=== PATIENT | female | born 1940 | race Caucasian/White ===

== ENCOUNTER 2023-12-12 13:01 | Inpatient (IN) ==
[2023-12-12 14:34] LABS: Partial Thromboplastin Ratio 0.9; Partial Thromboplastin Time 24 Seconds (21-31); Prothrombin Time 11.1 Seconds (9.0-12.0)
[2023-12-12 14:43] LABS: Alanine Aminotransferase 8 U/L (7-52); Albumin Globulin Ratio 1.4 (0.9-2); Albumin Level 4.1 gm/dl (3.4-5.0); Alkaline Phosphatase 126 U/L (34-104); Anion Gap 9 (3-11); Aspartate Aminotransferase 16 U/L (13-39); BUN Creatinine Ratio 21.3 (10-20); Bilirubin,Total 0.2 mg/dl (0.2-1.0); Blood Urea Nitrogen 20 mg/dl (6-23); Calcium 8.8 mg/dl (8.6-10.3); Carbon Dioxide 26 mmol/L (21-32); Chloride 102 mmol/L (98-107); Creatinine Clr Calc Pharmacy 46.6 ml/min; Est GFR (African American) 64.6 ml/min; Est GFR (Non-African American) 55.7 ml/min; Glucose 97 mg/dl (70-99(Fasting)); Potassium 3.9 mmol/L (3.5-5.1); Sodium 137 mmol/L (136-145); Total Protein 7.1 gm/dl (6.0-8.3)
[2023-12-12 14:48] LABS: Hematocrit (blood only) 19.8 % (37.0-47.0); Hemoglobin 5.6 g/dl (12.0-16.0); Mean Corpuscular Hemoglobin 18.2 pg (25.0-34.0); Mean Corpuscular Hgb Conc 28.3 g/dL (32.0-36.0); Mean Corpuscular Volume 64.3 fL (80.0-100.0); Nucleated RBC # (auto) 0.04 K/uL (0.00-0.12); Nucleated RBC % (auto) 0.7 %; Platelet Count 413 K/uL (130-400); RDW Coefficient of Variation 18.3 % (11.5-14.5); RDW Standard Deviation 41.1 fL (36.4-46.3); Red Blood Count 3.08 M/uL (4.20-5.40); White Blood Count 6.13 K/ul (4.8-10.8)
[2023-12-12 14:49] LABS: Troponin I High Sensitivity 14.2 pg/ml (0-14)
[2023-12-12] MEDS ORDERED: SODIUM CHLORIDE 0.9% 250 ML IV PRN (14:52)
--- NOTE | 2023-12-12 14:54 | Emergency Department Note ---
Impression & Plan Acute hypoxic respiratory failure, Symptomatic anemia, Pulmonary embolism, Weakness ED Provider Note NAME: JAZMINE CABAN AGE: 83 SEX: F : 1940 ARRIVES VIA: Walk-In INFORMANT: Patient ED PROVIDER(S): Pj Marino DO CHIEF COMPLAINT: shortness of breath HPI: Patient is an 83-year-old female who presents to the ER for weakness and shortness of breath with exertion. This has been going on for the past 3 weeks and gradually getting worse. She denies any headache or change in vision. No chest pain. Denies any dysuria, urgency or frequency. No other exacerbating or remitting factors. She has never had this before. No swelling of the legs. She denies any blood in the stool. ADDITIONAL HISTORY OBTAINED: Per HPI Chronic Medical/Social Conditions Affecting Care: Per HPI PAST MEDICAL HISTORY:See Below PAST SURGICAL HISTORY:See Below FAMILY HISTORY:See Below SOCIAL HISTORY:See Below HOME MEDICATIONS:See Below ALLERGIES:See Below VITALS:See Below PHYSICAL EXAMINATION: GENERAL: Sitting up in chair, alert, well appearing, well nourished, no distress, non-toxic EYE EXAM: normal conjunctiva. OROPHARYNX:mucous membranes are moist LUNGS: Clear to auscultation. Normal chest wall mechanics HEART: no murmurs, S1 normal and S2 normal ABDOMEN: abdomen soft, non-tender, normo-active bowel sounds, no masses, no rebound or guarding. RECTAL: hem neg brown stool performed with female RN at bedside Tammy UPPER EXTREMITIES: upper extremities are grossly normal. LOWER EXTREMITIES: No pitting edema. NEURO EXAM: Normal sensorium, cranial nerves II-XII grossly intact, normal speech, no gross weakness of arms, no gross weakness of legs. MEDICAL DECISION MAKING: Patient is an 83-year-old female who presents to the ER for dyspnea on exertion. IV was established blood work was obtained. Due to the protracted wait she was seen to be [employer]. She was found to be hypoxic and I immediately contacted the charge nurse and requested that she be placed in a room. Labs showed no significant leukocytosis. Significant anemia at 5.6 down from her previous of 2022 upon review of external records in [facility] which showed normal hemoglobins. Platelets were normal. No neutropenia. INR unremarkable. BMP along with LFTs and bilirubin was unremarkable. Troponin just faintly elevated at 14. Patient was typed and crossed and ordered 2 units of PRBCs. I obtained consent at bedside. Contacted the hospitalist as were trying to get the patient into a room due to current volumes. CTs of the chest and abdomen were ordered by the hospitalist which showed PEs. Please see their notes as this resulted after admission. Patient did remain on 2 L nasal cannula throughout her stay in the ER. She was not tachypneic, tachycardic nor hypotensive while in the ER. Consults/Care Managements Discussions: Per [facility] Triage Nursing notes reviewed. Limited review of prior medical records performed Vital Signs: reviewed and remarkable for hypoxic Differential diagnosis: Infection, dehydration, metabolic abnormality, hypo/hyperglycemia, electrolyte disturbance, anemia, hypoxia, cardiac sources, intracerebral event, toxicologic, neurologic, as well as other pathologies. ER treatment provided: See below Diagnostics interpreted by me include EKG and cardiac monitoring as listed below: -Cardiac Monitoring: An order was placed for continuous cardiac monitoring. The monitor shows a rate of 90 with sinus rhythm. -ECG: Sinus rhythm rate of 76 Left axis No PVCs QTc 450 -Laboratory studies:Interpreted by me as stated above in MDM and shown below. Imaging studies: Xrays: As interpreted by me: 2 views of the chest show no focal infiltrate CTs show: Please see hospitalist notes Procedures:none Critical Care: I have personally spent 32 minutes of critical care time in the direct management of this patient. This includes bedside care, interpretation of diagnostic studies, and testing, discussion with consultants, patient, and family members, and other required patient management activities. This 32 minutes is in excess of all separately billable procedures. Past Med/Surg History Problem List (Updated 12/12/23 @ 18:58 by Pj Marino DO) Weakness (Acute) Pulmonary embolism (Acute) Symptomatic anemia (Acute) Acute hypoxic respiratory failure (Acute) Medical History (Updated 12/12/23 @ 18:58 by Pj Marino DO) Arthritis Family History Other Family history non-contributory Social History Smoking Status: Never smoker Feels Safe at Home: Yes Allergies Allergies Allergy/AdvReac Type Severity Reaction Status Date / Time codeine Allergy Unknown CAN'T Verified 12/12/23 15:53 REMEMBER erythromycin base Allergy Unknown CAN'T Verified 12/12/23 15:53 REMEMBER Home Meds Home Medications Medication Instructions Recorded Confirmed glucosamine-chondroitin 250 mg-200 1 tab PO DAILY 10/10/18 12/12/23 mg tablet (Osteo Bi-Flex) hydrochlorothiazide 50 mg tablet 50 mg PO DAILY 10/10/18 12/12/23 omega 6-vls-sph-fish oil 1,000 mg 1 cap PO DAILY 10/10/18 12/12/23 (120 mg-180 mg) capsule (Fish Oil) potassium chloride 10 mEq 10 meq PO DAILY 10/10/18 12/12/23 tablet,extended release(part/cryst) primidone 250 mg tablet 250 mg PO BID 10/10/18 12/12/23 red yeast rice 600 mg capsule 600 mg PO DAILY 10/10/18 12/12/23 apple cider vinegar 500 mg tablet 500 mg PO DAILY 12/12/23 12/12/23 loratadine 10 mg tablet (Claritin) 10 mg PO DAILY 12/12/23 12/12/23 Results & Data (ED) Vital Signs Vital Signs - 24 hr 12/12/23 13:10 12/12/23 13:14 12/12/23 15:32 Temperature 36.5 C Temperature Source Temporal Artery Scan Pulse Rate 93 H 78 Pulse Rhythm Regular Pulse Strength Normal Respiratory Rate 20 Respiratory Effort / Characteristics Non-Labored Spontaneous Respiratory Depth Normal Blood Pressure 143/57 H Blood Pressure [Left Arm] Blood Pressure Mean 85 Blood Pressure Mean [Left Arm] Blood Pressure Position Sitting Pulse Oximetry 87 L 87 L 100 Oxygen Delivery Method Room Air Room Air Nasal Cannula Nasal Cannula Oxygen Flow Rate 0 2 Sepsis Recent Fever Within 48 Hours No Sepsis New/Unexplained Change in Mental Status N/A Sepsis Action Taken by Nursing No Action Required Oxygen Flow Rate - Titration 2 Pulse Oximetry Post Tiitration 94 12/12/23 15:32 12/12/23 15:49 Temperature Temperature Source Pulse Rate 83 Pulse Rhythm Pulse Strength Respiratory Rate Respiratory Effort / Characteristics Respiratory Depth Blood Pressure Blood Pressure [Left Arm] 163/67 H Blood Pressure Mean Blood Pressure Mean [Left Arm] 99 Blood Pressure Position Pulse Oximetry Oxygen Delivery Method Oxygen Flow Rate Sepsis Recent Fever Within 48 Hours Sepsis New/Unexplained Change in Mental Status Sepsis Action Taken by Nursing Oxygen Flow Rate - Titration Pulse Oximetry Post Tiitration Laboratory Data 12/12/23 13:55 12/12/23 13:55 Lab Results 12/12/23 12/12/23 Range/Units 13:55 15:31 WBC 6.13 (4.8-10.8) K/ul RBC 3.08 L (4.20-5.40) M/uL Hgb 5.6 L* (12.0-16.0) g/dl Hct 19.8 L* (37.0-47.0) % MCV 64.3 L (80.0-100.0) fL MCH 18.2 L (25.0-34.0) pg MCHC 28.3 L (32.0-36.0) g/dL RDW Std Deviation 41.1 (36.4-46.3) fL RDW Coeff of Kendal 18.3 H (11.5-14.5) % Plt Count 413 H (130-400) K/uL MPV 10.0 (9.4-12.4) fL Immature Gran % (Auto) 0.3 % Neut % (Auto) 53.7 % Lymph % (Auto) 32.0 % [place] % (Auto) 10.3 % Eos % (Auto) 3.4 % Baso % (Auto) 0.3 % Neut # (Auto) 3.29 (1.40-6.50) K/uL Lymph # (Auto) 1.96 (1.20-3.40) K/uL [place] # (Auto) 0.63 H (0.11-0.59) K/uL Eos # (Auto) 0.21 (0.00-0.50) K/uL Baso # (Auto) 0.02 (0.00-0.20) K/uL Immature Gran # (Auto) 0.02 (0.01-0.20) K/uL Absolute Nucleated RBC 0.04 (0.00-0.12) K/uL Nucleated RBC % (auto) 0.7 % Polychromasia 1+ Hypochromasia Present Microcytosis Present PT 11.1 (9.0-12.0) Seconds INR 1.0 (0.9-1.1) APTT 24 (21-31) Seconds PTT Ratio 0.9 Sodium 137 (136-145) mmol/L Potassium 3.9 (3.5-5.1) mmol/L Chloride 102 (98-107) mmol/L Carbon Dioxide 26 (21-32) mmol/L Anion Gap 9 (3-11) BUN 20 (6-23) mg/dl Creatinine 0.94 (0.6-1.2) mg/dl Est Cr Clr Drug Dosing 46.6 ml/min Est GFR ( Amer) 64.6 ml/min Est GFR (Non-Af Amer) 55.7 ml/min BUN/Creatinine Ratio 21.3 H (10-20) Glucose 97 (70-99(Fasting)) mg/dl Calcium 8.8 (8.6-10.3) mg/dl Total Bilirubin 0.2 (0.2-1.0) mg/dl AST 16 (13-39) U/L ALT 8 (7-52) U/L Alkaline Phosphatase 126 H (34-104) U/L Troponin I High Sens 14.2 H (0-14) pg/ml B-Natriuretic Peptide 200 H (0-100) pg/ml Total Protein 7.1 (6.0-8.3) gm/dl Albumin 4.1 (3.4-5.0) gm/dl Globulin 3.0 (2.5-4.0) gm/dl Albumin/Globulin Ratio 1.4 (0.9-2) Blood Type O Positive Antibody Screen NEGATIVE Crossmatch See Detail Administered Medications Discontinued Medications Ioversol (Optiray 320 125ml) 121 ml IV ONCE ONE Stop: 12/12/23 16:29 Last Admin: 12/12/23 16:28 Dose: 121 ml Documented By: [facility]W Imaging Data Radiologist's Impression: Chest X-Ray 12/12/23 13:15 XR chest 2V PA/lateral HISTORY: Chest pain, nonspecific COMPARISON: None. FINDINGS: No pneumothorax. No pleural effusions. The cortex silhouette is mildly enlarged. Retrocardiac density favors a moderate hiatus hernia. There are calcifications within the aortic knob. No focal lung consolidations to suggest a pneumonia. No evidence for pulmonary edema. No acute fractures. IMPRESSION: 1. Mild cardiomegaly. 2. Retrocardiac density favors a moderate hiatus hernia. 3. No focal lung consolidations to suggest a pneumonia. ACT 112: Negative or not required by law. Electronically signed by: Yuri Virgen M.D. 12/12/2023 3:14 PM Discharge Plan Visit Data Chief Complaint: Shortness of Breath/Dyspnea Stated Complaint: SOB ED Provider: Pj Marino Discharge Problem: Acute hypoxic respiratory failure, Symptomatic anemia, Pulmonary embolism, Weakness Patient Disposition: Admitted As Inpatient Discharge Instructions Interventions: ED Discharge Assessment Last Done: 12/12/23 17:26 Discharge Problem: Pulmonary embolism Qualifiers: Pulmonary embolism type: unspecified Chronicity: unspecified Acute cor pulmonale presence: unspecified Qualified Code(s): I26.99 - Other pulmonary embolism without acute cor pulmonale
[2023-12-12 14:56] LABS: Basophils # (auto) 0.02 K/uL (0.00-0.20); Basophils % (auto) 0.3 %; Eosinophils # (auto) 0.21 K/uL (0.00-0.50); Eosinophils % (auto) 3.4 %; Hypochromasia Present; Immature Granulocytes # (auto) 0.02 K/uL (0.01-0.20); Immature Granulocytes % (auto) 0.3 %; Lymphocytes # (auto) 1.96 K/uL (1.20-3.40); Microcytosis Present; Monocytes # (auto) 0.63 K/uL (0.11-0.59); Monocytes % (auto) 10.3 %; Neutrophils # (auto) 3.29 K/uL (1.40-6.50); Neutrophils % (auto) 53.7 %; Polychromasia 1+
--- NOTE | 2023-12-12 15:15 | XRay Report ---
XR chest 2V PA/lateral HISTORY: Chest pain, nonspecific COMPARISON: None. FINDINGS: No pneumothorax. No pleural effusions. The cortex silhouette is mildly enlarged. Retrocardi ac density favors a moderate hiatus hernia. There are calcifications within the aortic knob. No focal lung consolidations to suggest a pneumonia. No evidence for pulmonary edema. No acute fractures. IMPRESSION: 1. Mild cardiomegaly. 2. Retrocardiac density favors a moderate hiatus hernia. 3. No focal lung consolidations to suggest a pneumonia. ACT 112: Negative or not required by law. Electronically signed by: Yuri Virgen M.D. 12/12/2023 3:14 PM
--- NOTE | 2023-12-12 15:52 | History & Physical Report ---
Date of Service December 12, 2023 Assessment & Plan (1) Weakness: (2) Pulmonary embolism: (3) Symptomatic anemia: (4) Acute hypoxic respiratory failure: Plan Pt is an 83yoF with PMHx significant for HTN, seizure disorder, HLD who presents with progressive SOB over the last few weeks. Acute hypoxic respiratory Failure Pt with oxygen saturation in the 80s at times Biofire/respiratory panel pending Echo pending to rule out CHF Likely in setting of severe anemia and PEs (see below) Oxygen supplementation as needed Continue to monitor Microcytic Anemia Pt presenting with progressive SOB Hgb of 5.6 on admission, last CBC per [facility] in October 2020 with hgb of 13.9 MCV in the 60s Pt denies any signs of bleeding FOBT per ED provider negative Anemia panel with iron, b12 and folate pending CT abd/pelvis with no obvious cause Being transfused 2U of pRBCs in the ED q6h H/H transfuse blood as needed with goal hgb >7 Hematology consult, appreciate recs Likely chronic given pt's presentation, uncertain cause Continue to monitor Multiple pulmonary emboli Pt presenting with progressive SOB CTA chest noting extensive bilateral pulmonary emboli Stat consult to Hematology Dr Avery given pt's significant anemia requiring transfusion and need for heparin for PE. Dr Avery advised IV heparin if no signs of bleeding and to consider IVC filter if there are signs of bleeding. Pt currently withOUT signs of bleeding, IV heparin started Echo pending to r/o heart strain Bilateral venous doppler pending to r/o DVT Monitor H/H q6h while on heparin Uncertain cause of PE in setting of chronic anemia, ?cancer, biofire pending to r/o covid. Appreciate further Hematology recs. Continue with telemetry monitoring Elevated Trop Cardiomegaly Trop elevated at 14.2 Likely demand ischemia in setting of above Trend to peak BNP of 200 with cardiomegaly noted on chest XR, echo pending as above, r/o CHF Continue telemetry monitoring Hiatal hernia moderate to large, noted on imaging started on ppi Seizure disorder Continue home primidone HTN Holding home HCTZ in setting of significant anemia, resume as able HLD Holding home red yeast extract Continue other home meds as ordered Diet: HH DVT prophylaxis: IV heparin Dispo: admit to PCU/tele History of Present Illness Chief Complaint: Shortness of breath Primary Care Provider: Jarrod Moseley DO Pt is an 83yoF with PMHx significant for HTN, seizure disorder, HLD who presents with progressive SOB over the last few weeks. She states that she has been having SOB with progression over the last few weeks. Mostly with ambulation. States she has never smoked and does not use oxygen at home. Denies epistaxis, hemoptysis, hematemesis or hematochezia/melena. She does note that many weeks ago she might have had black stools but believes it was related to what she ate. States she gets very tired and has to rest or sit when she is walking. Chart review shows she saw her pcp in October and had had a recent fall at that time. Denies chest pain but states she feels like she has reflux. Denies palpitations. Denies orthopnea. States her legs are always swollen. Pt was consented for blood in the ED and transfused 2U. Two sons were present at bedside including son Rayray Banuelos who is an RN here in the hospital. Allergies Allergy/AdvReac Type Severity Reaction Status Date / Time codeine Allergy Unknown CAN'T Verified 12/12/23 15:53 REMEMBER erythromycin base Allergy Unknown CAN'T Verified 12/12/23 15:53 REMEMBER Home Medications Medication Instructions Recorded Confirmed Type glucosamine-chondroitin 250 mg-200 1 tab PO DAILY 10/10/18 12/12/23 History mg tablet (Osteo Bi-Flex) hydrochlorothiazide 50 mg tablet 50 mg PO DAILY 10/10/18 12/12/23 History omega 4-ahu-lps-fish oil 1,000 mg 1 cap PO DAILY 10/10/18 12/12/23 History (120 mg-180 mg) capsule (Fish Oil) potassium chloride 10 mEq 10 meq PO DAILY 10/10/18 12/12/23 History tablet,extended release(part/cryst) primidone 250 mg tablet 250 mg PO BID 10/10/18 12/12/23 History red yeast rice 600 mg capsule 600 mg PO DAILY 10/10/18 12/12/23 History apple cider vinegar 500 mg tablet 500 mg PO DAILY 12/12/23 12/12/23 History loratadine 10 mg tablet (Claritin) 10 mg PO DAILY 12/12/23 12/12/23 History Past Med/Surg History Problem List (Updated 12/12/23 @ 18:58 by Pj Marino DO) Weakness (Acute) Pulmonary embolism (Acute) Symptomatic anemia (Acute) Acute hypoxic respiratory failure (Acute) Medical History (Updated 12/12/23 @ 18:58 by Pj Marino DO) Arthritis Family History Other Family history non-contributory Social History Smoking Status: Never smoker Feels Safe at Home: Yes Review of Systems Review of Systems: All systems reviewed & are unremarkable except as noted in Subjective Physical Exam Physical Exam: General: Alert, oriented. No acute distress Skin: No noted rashes or bruises Psych: Appropriate mood and affect Neuro: No gross deficits HEENT: NC/AT, NC in nares Chest: Nontender to palpation. CV: RRR Resp: Breath sounds decreased bilaterally, no increased effort of breathing. Abdomen: Soft, nontender, nondistended Extremities: edema in lower extremities bilaterally. Results & Data Results & Data Vital Signs (Past 12 Hours) Vital Signs Temp Pulse Resp BP BP Pulse Ox O2 Del Method 12/12/23 15:49 83 12/12/23 15:32 163/67 H 12/12/23 15:32 78 100 Nasal Cannula 12/12/23 13:14 87 L Room Air, Nasal Cannula 12/12/23 13:10 36.5 C 93 H 20 143/57 H 87 L Room Air O2 Flow Rate 12/12/23 15:49 12/12/23 15:32 12/12/23 15:32 2 12/12/23 13:14 0 12/12/23 13:10 Diagnostic Findings Chest X-Ray 12/12/23 13:15 XR chest 2V PA/lateral HISTORY: Chest pain, nonspecific COMPARISON: None. FINDINGS: No pneumothorax. No pleural effusions. The cortex silhouette is mildly enlarged. Retrocardiac density favors a moderate hiatus hernia. There are calcifications within the aortic knob. No focal lung consolidations to suggest a pneumonia. No evidence for pulmonary edema. No acute fractures. IMPRESSION: 1. Mild cardiomegaly. 2. Retrocardiac density favors a moderate hiatus hernia. 3. No focal lung consolidations to suggest a pneumonia. ACT 112: Negative or not required by law. Electronically signed by: Yuri iVrgen M.D. 12/12/2023 3:14 PM Abdomen/Pelvis CT 12/12/23 15:[address] WITH IV CONTRAST CT DOSE: HISTORY: anemia, r/o bleed TECHNIQUE: Multiaxial CT images of the abdomen and pelvis were performed fo llowing the use of intravenous contrast. A dose lowering technique was utilized adhering to the principles of ALARA. COMPARISON STUDY: None. FINDINGS: The lung bases will be reported on the same day chest CTA. No pneumoperitoneum. No pneumatosis. No acute fractures. Moderate hiatus hernia is noted. Right lower lobe segmental pulmonary emboli are again noted. A few hepatic and bilateral renal cysts are noted. The spleen, adrenal glands, pancreas, gallbladder are unremarkable. The main portal vein is patent. No hydronephrosis. No retroperitoneal hematoma or lymphadenopathy. Calcified plaque within the normal caliber abdominal aorta. No pelvic lymphadenopathy or pelvic free fluid. Normal bladder. Prior hysterectomy. Mild pelvic floor collapse. No bowel wall thickening or obstruction. Prior appendectomy. Small bilateral ovarian cysts are noted. IMPRESSION: 1. The right lower lobe pulmonary emboli are better appreciated on the same day chest CTA. 2. No evidence for a retroperitoneal hematoma. 3. No bowel wall thickening or obstruction. 4. Moderate hiatus hernia. 5. Additional findings as described above. ACT 112: Negative or not required by law. Electronically signed by: Yuri Virgen M.D. 12/12/2023 5:17 PM Chest CTA 12/12/23 15:59 CT ANGIOGRAM OF THE CHEST CLINICAL HISTORY: Atypical chest pain. Dyspnea. Fatigue COMPARISON STUDY: Chest x-ray dated 12/12/2023. TECHNIQUE: Following the IV administration of 121 cc of Optiray 320, CT angiogram of the chest was performed from the upper abdomen to the thoracic inlet utilizing the pulmonary embolus protocol. Images are reviewed in the axial, sagittal, and coronal planes. 3-D MIPS images are created and assessed. IV contrast was administered without complication. A dose lowering technique was utilized adhering to the principles of ALARA. CT DOSE: 2269.61 mGy.cm FINDINGS: Thyroid: Imaged portions of the thyroid gland are normal in size and attenuation. Thoracic aorta: There is atherosclerotic calcification of the thoracic aorta, which is normal in caliber and demonstrates standard 3-vessel arch anatomy. No dissection is seen. Pulmonary vasculature: The pulmonary trunk is normal in caliber. There is pulmonary embolus within the right upper, right middle, and left lower lobe pulmonary arteries which extend into segmental and subsegmental branches. There are also segmental and subsegmental pulmonary embolus in branches of the right lower and left upper lobe pulmonary arteries. Heart: The heart is enlarged and without pericardial effusion. The coronary arteries are densely calcified. Lungs and pleural spaces: Evaluation of the lung parenchyma is degraded by motion artifact. There is no airspace consolidation or pleural effusion. Subpleural reticulation is seen throughout both lungs. There is bibasilar scarring/atelectasis. The trachea and central airways are clear. Mediastinum: There is no mediastinal lymphadenopathy. Faith: Clear. Axillae: There is no axillary lymphadenopathy. Upper abdomen: There is a moderate to large hiatal hernia. Scattered hepatic cysts measure up to 2.4 cm. An exophytic left renal cyst measures up to 1.6 cm. Skeletal structures: The skeletal structures are osteopenic. Degenerative change and hyperkyphosis is seen in the spine. No lytic or blastic bony lesions are seen. Arthritic change is seen in the shoulders. IMPRESSION: 1. Fairly extensive bilateral pulmonary emboli as above. 2. There is no airspace consolidation or pleural effusion. 3. Moderate to large hiatal hernia. 4. Cardiomegaly. 5. Additional findings as above. ACT 112: Negative or not required by law. Electronically signed by: Johnathan Gresham M.D. 12/12/2023 5:04 PM (2) Pulmonary embolism Acute cor pulmonale presence: unspecified Chronicity: unspecified Pulmonary embolism type: unspecified Qualified Code(s): I26.99 - Other pulmonary embolism without acute cor pulmonale
[2023-12-12] MEDS: OPTIRAY 320 125ml IV ONE (16:28)
--- NOTE | 2023-12-12 17:06 | CT Scan Report ---
CT ANGIOGRAM OF THE CHEST CLINICAL HISTORY: Atypical chest pain. Dyspnea. Fatigue COMPARISON STUDY: Chest x-ray dated 12/12/2023. TECHNIQUE: Following the IV administration of 121 cc of Optiray 320, CT angiogram of the chest was pe rformed from the upper abdomen to the thoracic inlet utilizing the pulmonary embolus protocol. Images are reviewed in the axial, sagittal, and coronal planes. 3-D MIPS images are created and assessed. I V contrast was administered without complication. A dose lowering technique was utilized adhering to the principles of ALARA. CT DOSE: 2269.61 mGy.cm FINDINGS: Thyroid: Imaged portions of the thyroid gland are normal in size and attenuation. Thoracic aorta: There is atherosclerotic calcification of the thoracic aorta, which is normal in nnamdi samina and demonstrates standard 3-vessel arch anatomy. No dissection is seen. Pulmonary vasculature: The pulmonary trunk is normal in caliber. There is pulmonary embolus within th e right upper, right middle, and left lower lobe pulmonary arteries which extend into segmental and s ubsegmental branches. There are also segmental and subsegmental pulmonary embolus in branches of the right lower and left upper lobe pulmonary arteries. Heart: The heart is enlarged and without pericardial effusion. The coronary arteries are densely calc ified. Lungs and pleural spaces: Evaluation of the lung parenchyma is degraded by motion artifact. There is no airspace consolidation or pleural effusion. Subpleural reticulation is seen throughout both lungs. There is bibasilar scarring/atelectasis. The trachea and central airways are clear. Mediastinum: There is no mediastinal lymphadenopathy. Faith: Clear. Axillae: There is no axillary lymphadenopathy. Upper abdomen: There is a moderate to large hiatal hernia. Scattered hepatic cysts measure up to 2.4 cm. An exophytic left renal cyst measures up to 1.6 cm. Skeletal structures: The skeletal structures are osteopenic. Degenerative change and hyperkyphosis is seen in the spine. No lytic or blastic bony lesions are seen. Arthritic change is seen in the should ers. IMPRESSION: 1. Fairly extensive bilateral pulmonary emboli as above. 2. There is no airspace consolidation or pleural effusion. 3. Moderate to large hiatal hernia. 4. Cardiomegaly. 5. Additional findings as above. ACT 112: Negative or not required by law. Electronically signed by: Johnathan Gresham M.D. 12/12/2023 5:04 PM
--- NOTE | 2023-12-12 17:20 | CT Scan Report ---
ABDOMEN AND PELVIS CT WITH IV CONTRAST CT DOSE: HISTORY: anemia, r/o bleed TECHNIQUE: Multiaxial CT images of the abdomen and pelvis were performed following the use of intrave nous contrast. A dose lowering technique was utilized adhering to the principles of ALARA. COMPARISON STUDY: None. FINDINGS: The lung bases will be reported on the same day chest CTA. No pneumoperitoneum. No pneumato sis. No acute fractures. Moderate hiatus hernia is noted. Right lower lobe segmental pulmonary emboli are again noted. A few hepatic and bilateral renal cysts are noted. The spleen, adrenal glands, panc reas, gallbladder are unremarkable. The main portal vein is patent. No hydronephrosis. No retroperito alex hematoma or lymphadenopathy. Calcified plaque within the normal caliber abdominal aorta. No pelv ic lymphadenopathy or pelvic free fluid. Normal bladder. Prior hysterectomy. Mild pelvic floor collap se. No bowel wall thickening or obstruction. Prior appendectomy. Small bilateral ovarian cysts are no nohelia. IMPRESSION: 1. The right lower lobe pulmonary emboli are better appreciated on the same day chest CTA. 2. No evidence for a retroperitoneal hematoma. 3. No bowel wall thickening or obstruction. 4. Moderate hiatus hernia. 5. Additional findings as described above. ACT 112: Negative or not required by law. Electronically signed by: Yuri Virgen M.D. 12/12/2023 5:17 PM
[2023-12-12 19:02] LABS: Iron < 10 mcg/dl (35-150)
[2023-12-12] MEDS: HEPARIN SODIUM/DEXTROSE 25,000 UNITS/500 ML BAG IV SCH (19:15)
[2023-12-12] MEDS: Heparin IV Adult Wt-Based Low-Dose *NO* INITIAL Bolus Protocol IV STA (19:17)
[2023-12-12 19:21] LABS: Ferritin 4.8 ng/ml (8-388)
[2023-12-12 19:25] LABS: Unsaturated Iron Binding Cap 507 mcg/dl (155-355)
[2023-12-12 19:36] LABS: Folate (Folic Acid),Ser orPlas 7.2 ng/ml (>5.38)
[2023-12-12] MEDS ORDERED: ONDANSETRON INJ 2 MG/ML 2 ML VIAL IV PRN (19:59)
--- NOTE | 2023-12-12 21:48 | Oncology Consultation ---
Date of Consultation December 12, 2023 Assessment & Plan (1) Iron deficiency anemia: Transfuse to maintain hemoglobin above 7. The patient will need a full workup for iron deficiency anemia including GI workup which can be performed when she is discharged. She will also need IV iron which can be given in an outpatient basis once the patient is ready for discharge more while she is in the hospital. (2) Pulmonary embolism: FOBT tested okay to anticoagulate patient. Start heparin, transition to oral anticoagulation once ready. The patient will need to be on an anticoagulant for at least 6 months. She will need hypercoagulable workup on discharge. Hematology will follow-up on an outpatient basis. Plan Thank you for this complicated hematological consult. A total of 60 minutes were spent in counseling, coordination of care, review of prior records. History of Present Illness Reason for Consultation: Pulmonary embolism microcytic hypochromic anemia Attending Physician: Denise Osman MD History of Present Illness the patient is a very pleasant 83-year-old woman with a past history of seizure disorder, hyperlipidemia who presented to [facility] with shortness of breath over the last few weeks. in the ER she was noted to be significantly anemic with a hemoglobin of 5.6, She also had a CT scan of the chest abdomen pelvis which revealed pulmonary embolism. Hematology was consulted to assist in management of this complicated patient who has both severe anemia as well as PE. A fecal occult blood test was checked in the ER and was negative. The patient was started on anticoagulation with heparin. There were also small bilateral ovarian cysts, left renal cysts. Doppler of the lower extremities revealed DVT in the left calf. Allergies Allergy/AdvReac Type Severity Reaction Status Date / Time codeine Allergy Unknown CAN'T Verified 12/12/23 15:53 REMEMBER erythromycin base Allergy Unknown CAN'T Verified 12/12/23 15:53 REMEMBER Home Medications Medication Instructions Recorded Confirmed Type glucosamine-chondroitin 250 mg-200 1 tab PO DAILY 10/10/18 12/12/23 History mg tablet (Osteo Bi-Flex) hydrochlorothiazide 50 mg tablet 50 mg PO DAILY 10/10/18 12/12/23 History omega 3-lqi-nvi-fish oil 1,000 mg 1 cap PO DAILY 10/10/18 12/12/23 History (120 mg-180 mg) capsule (Fish Oil) potassium chloride 10 mEq 10 meq PO DAILY 10/10/18 12/12/23 History tablet,extended release(part/cryst) primidone 250 mg tablet 250 mg PO BID 10/10/18 12/12/23 History red yeast rice 600 mg capsule 600 mg PO DAILY 10/10/18 12/12/23 History apple cider vinegar 500 mg tablet 500 mg PO DAILY 12/12/23 12/12/23 History loratadine 10 mg tablet (Claritin) 10 mg PO DAILY 12/12/23 12/12/23 History Patient History Medical History Arthritis Family History Other Family history non-contributory Social History Smoking Status: Never smoker Hx Alcohol Use: No Hx Substance Use: No Preferred Language: Burkinan Communication Ability: Effective Sandblaster Glass Required: No Beliefs That Will Affect Care: None Current Living Situation: Alone Other Information That Helps Us Care for You: No Feels Safe at Home: Yes Safety Concerns: Feels Safe At This Time Assistive Devices: Cane, Glasses and Walker Review of Systems Review of Systems: Weakness, fatigue, dyspnea on exertion Constitutional: as per Subjective / HPI Eyes: as per Subjective / HPI Ear, Nose, Mouth, Throat: as per Subjective / HPI Respiratory: as per Subjective / HPI Cardiovascular: as per Subjective / HPI Gastrointestinal: as per Subjective / HPI Genitourinary: as per Subjective / HPI Musculoskeletal: as per Subjective / HPI Integumentary: as per Subjective / HPI Neurologic: as per Subjective / HPI Psychiatric: as per Subjective / HPI Endocrine: as per Subjective / HPI Hematologic / Lymphatic: as per Subjective / HPI Allergy / Immunological: as per Subjective / HPI Physical Exam Constitutional: WD/WN, vitals as above Eyes: PERRL, conjunctivae normal, anicteric sclerae ENMT: external ear and nose normal, oropharynx normal Neck: trachea midline, no thyromegaly Respiratory: normal respiratory effort, lungs clear to auscultation Cardiovascular: RRR, no murmur, no edema Gastrointestinal (Abdomen): normal bowel sounds, soft, nontender, no hepatosplenomegaly Musculoskeletal: no cyanosis or clubbing, extremities motor strength 5/5 Skin: no rashes, warm and dry Neurologic: patellar DTR's 2+ bilat, sensation intact Psychiatric: A+Ox3, euthymic affect Genitourinary: no vaginal lesions, no adnexal mass Lymphatic: no cervical or axillary lymphadenopathy Results & Data Vital Signs (Past 12 Hours) Vital Signs Temp Pulse Pulse Resp BP BP Pulse Ox 12/12/23 21:05 36.9 C 72 17 170/80 H 100 12/12/23 21:03 73 16 170/80 H 97 12/12/23 20:35 36.7 C 74 16 153/67 H 99 12/12/23 20:20 36.8 C 73 17 153/67 H 97 12/12/23 19:58 36.6 C 74 18 161/69 H 99 12/12/23 19:25 36.8 C 74 22 168/77 H 97 12/12/23 18:44 36.6 C 78 16 156/74 H 98 12/12/23 18:25 36.6 C 72 18 156/74 H 99 12/12/23 17:55 36.6 C 73 17 159/69 H 100 12/12/23 17:40 36.7 C 75 19 167/69 H 98 12/12/23 17:15 36.6 C 80 15 176/69 H 100 12/12/23 15:49 83 12/12/23 15:32 163/67 H 12/12/23 15:32 78 100 12/12/23 13:14 87 L 12/12/23 13:10 36.5 C 93 H 20 143/57 H 87 L O2 Del Method O2 Flow Rate 12/12/23 21:05 2 12/12/23 21:03 Nasal Cannula 2 12/12/23 20:35 2 12/12/23 20:20 2 12/12/23 19:58 2 12/12/23 19:25 2 12/12/23 18:44 Nasal Cannula 2 12/12/23 18:25 2 12/12/23 17:55 3 12/12/23 17:40 3 12/12/23 17:15 2 12/12/23 15:49 12/12/23 15:32 12/12/23 15:32 Nasal Cannula 2 12/12/23 13:14 Room Air, Nasal Cannula 0 12/12/23 13:10 Room Air (2) Pulmonary embolism Acute cor pulmonale presence: unspecified Chronicity: unspecified Pulmonary embolism type: unspecified Qualified Code(s): I26.99 - Other pulmonary embolism without acute cor pulmonale
[2023-12-12 22:28] LABS: Adenovirus PCR Not Detected (NotDetected); Bordetella parapertussis PCR Not Detected (NotDetected); Bordetella pertussis PCR Not Detected (NotDetected); Chlamydia pneumoniae PCR Not Detected (NotDetected); Coronavirus 229E PCR Not Detected (NotDetected); Coronavirus CoV-2 (COVID19)PCR Not Detected (NotDetected); Coronavirus HKU1 PCR Not Detected (NotDetected); Coronavirus NL63 PCR Not Detected (NotDetected); Coronavirus OC43PCR Not Detected (NotDetected); Human Metapneumovirus PCR Not Detected (NotDetected); Influenza A PCR Not Detected (NotDetected); Influenza B PCR Not Detected (NotDetected); Mycoplasma pneumoniae PCR Not Detected (NotDetected); Parainfluenza Virus 1 PCR Not Detected (NotDetected); Parainfluenza Virus 2 PCR Not Detected (NotDetected); Parainfluenza Virus 3 PCR Not Detected (NotDetected); Parainfluenza Virus 4 PCR Not Detected (NotDetected); Respiratory Syncytial VirusPCR Not Detected (NotDetected); Rhinovirus/Enterovirus PCR Not Detected (NotDetected)
[2023-12-13] MEDS: PRIMIDONE 250 MG TAB PO SCH (00:50)
[2023-12-13 01:51] LABS: ANTI-Xa, UFH(UnfractionatedHep 0.46 IU/ml (0.3-0.7)
[2023-12-13 04:19] LABS: Hematocrit (blood only) 24.5 % (37.0-47.0); Hemoglobin 7.5 g/dl (12.0-16.0)
--- OUTSIDE RECORDS SUMMARY | 2023-12-13 07:30 | External Medical Summary | Summary of Care ---
Author Name Unknown Organization [facility] Address [address] [place] [address] Phone [phone] Care Team Providers Care Electrician Chief Name Role Phone AdelinaJarrod johnson Elías PENNY Primary Care Provider [phone] Reason for Visit * Reason Comments Outpatient Testing Encounter Details Date Type Department Care Team (Late st Contact Info) Description 11/13/2023 11:50 AM EDT Laboratory Laboratory [facility] [address] [place] [id number] [place], [address] [place] [address] Alkaline phosphatase elevation; Bilateral primary osteoarthritis of knee Allergies Active Allergy Reactions Criticality Noted Date Comments Codeine 02/25/2001 Erythromycin 02/25/2001 documented as of this encounter (statuses as of 11/13/2023) Medications Medication Sig Dispensed Refills Start Date End Date Status FISH OIL 500 MG PO CAPS 2 daily 0 10/23/2005 Active RED YEAST RICE 600 MG PO TABS one daily 06/07/2009 Active Misc Natural Products (APPLE CIDER VINEGAR) TABS Take by mouth daily. 06/20/2016 Active Osteo Bi-Flex Adv Joint Shield Oral Tablet Take 1 Tab by mouth daily. Active Loratadine 10 MG Oral Tablet (Claritin)Indication s:Seasonal allergic rhinitis due to pollen Take 1 Tablet by mouth in the morning. 30 Tab 5 10/21/2020 Active Potassium Chloride Monisha ER 10 MEQ Oral Tablet Extended ReleaseIndications:B ilateral leg edema TAKE 1 TABLET EVERY DAY 90 Tablet 1 08/09/2023 Active Primidone 250 MG Oral Tablet (Mysoline)Indication s:Other generalized epilepsy, not intractable, without status epilepticus (HCC) TAKE 1 TABLET TWICE DAILY 180 Tablet 3 08/09/2023 Active hydroCHLOROthiazide 50 MG Oral Tablet (Hydrodiuril)Indicat ions:Bilateral leg edema TAKE 1 TABLET EVERY DAY 90 Tablet 1 08/09/2023 Active Adacel 5-2-15.5 LF-MCG/0.5 Intramuscular Suspension (Vzoonjm-Mskecm-Kbvj l Pertussis) Inject 0.5 mL into a large muscle once for 1 dose. 0.5 mL 11/13/2023 11/14/2023 Active Vswgzqug-Azeuttkoi-R C 3.5-13401-6 Otic SolutionIndications: Acute otitis externa of right ear, unspecified type Administer 4 Drops to the right ear in the morning and 4 Drops at noon and 4 Drops before bedtime. Do all this for 10 days. In affected ear.. 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 ADVANCE DIRECTIVE INFORMATION 11/11/2004 Overview: No, Advance Directive brochure given to patient. 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/29/2003 06/20/2016 Overview: remote hx since infancy HYPERTENSION NOS 07/19/2001 06/17/2007 documented as of this encounter (statuses as of 11/13/2023) Immunizations Name Administration Dates Next Due COVID-19 mRNA, LNP-s, No Pre serve, 2-Dose Series ([employer]) 08/11/2021,01/25/2021,07/13/2020,06/17 Covid-19, Mrna, Lnp-s, Pf, B ivalent, 30 Mcg, IM, 12 yrs and above (Pfizer) 01/02/2022 Pneumococcal Conjugate Vacc, 13 Valent (Prevnar) 06/20/2016 Pneumococcal Polysaccharide PPV23 (Pneumovax) 02/28/2007 Seasonal Influenza, Quadriva lent Hd (Fluzone Hd) 01/29/2023,12/06/2021,12/09/2020 Seasonal Influenza, Quadriva lent, No Preserve, IM 01/01/2018,12/13/2016 Seasonal Influenza, Split, I IV3, With Preserve, Inj 01/24/2016,02/20/2015,01/17/2014,01/09,01/31/2012,01/03/2011,12/30/2009 ,02/09/2009,02/05/2008,02/28/2007,01/15 Seasonal Influenza, Trivalen t, Adjuvanted, 65+ yrs 12/11/2019,01/28/2019 TDAP, Age 7 and older, IM (Adacel) 11/13/2023 Varicella Zoster Vaccine (Adult) 06/18/2013 Zoster Vaccine Recombinant (Shingrix) 09/04/2022 ,05/12/2022 documented as of this encounter Social History Tobacco Use Types Packs/Day Years Used Date Smoking Tobacco: Never Smokeless Tobacco: Never Alcohol Use Standard Drinks/Week Comments No 0 (1 standard drink = 0.6 oz pur e alcohol) PHQ-2 Answer Date Recorded PHQ-2 Score 0 10/22/2019 Utilities Answer Date Recorded Do you have trouble paying y our heating, water, or electric bill? (Adult - for ages 18 years and over) Not on file 10/02/2023 Is your family able to pay t he heat, water, or electric bill? (Household - for ages 0-17 years) Not on file 10/02/2023 Does your family have access to good internet? (Household - for ages 0-17 years) Not on file 10/02/2023 Social Connections Answer Date Recorded How often do you feel lonely or isolated from those around you? (Adult - for ages 18 years and over) Not on file 10/02/2023 Sex and Gender Information Value Date Recorded Sex Assigned at Not on file Gender Identity Not on file Sexual Orientation Not on file Job Start Date Occupation Industry Not on file Not on file Not on file documented as of this encounter Plan of Treatment Upcoming Encounters Date Type Department Care Team (Late st Contact Info) Description 11/17/2024 10:20 AM EDT Office Visit Family [facility] [address] [place] [id number] Jarrod Moseley, [address] [place] [address] Pending Results Name Type Priority Associated Diagnoses Date /Time COMPREHENSIVE METABOLIC PANEL Lab Routine Alkaline phosphatase elevation Bilateral primary osteoarthritis of knee 11/13/2023 12:00 PM EDT Health Maintenance Due Date Last Done Comments DXA Scan 06/28/2016 06/28/2009, 06/28/2009 Depression Screening 10/21/2020 10/22/2019 COVID-19 Vaccine (2022- season) 2022 01/02/2022, 08/11/2021, 01/25/2021, Additional history exists Influenza Vaccine (FLU shot) (#1) 2023 01/29/2023, 12/06/2021, 12/09/2020, Additional history exists DTaP,Tdap,and Td Vaccines (2 - Td or Tdap) 11/12/2033 11/13/2023 Pneumococcal Vaccine: 65+ Years Completed 06/20/2016, 02/28/2007 Zoster Vaccines Completed 09/04/2022, 04/17, 06/18/2013 HPV (Gardasil) Vaccine Aged Out No lo nger eligible based on patient's age to complete this topic Hepatitis B Vaccine Aged Out No longe r eligible based on patient's age to complete this topic MENINGOCOCCAL (MENACTRA/MENVEO) Aged Out No longer eligible based on patient's age to complete this topic documented as of this encounter Medical Devices Not on filedocumented as of this encounter Visit Diagnoses Diagnosis Alkaline phosphatase elevation Other nonspecific abnormal serum enzyme levels Bilateral primary osteoarthritis of knee documented in this encounter Care Teams Electrician Chief Relationship Specialty Start Date End Date Jarrod Moseley DO [address] [place] [address] PCP - General Family Medicine 02/08/21 documented as of this encounter
--- OUTSIDE RECORDS SUMMARY | 2023-12-13 07:30 | External Medical Summary | Summary of Care ---
Author Name Unknown Organization [facility] Address [address] [place] [address] Phone [phone] Care Team Providers Care Industrial Gas Fitter Name Role Phone Jarrod Moseley DO Primary Care Provider [phone] Encounter Details Date Type Department Care Team (Late st Contact Info) Description 2023 Telephone Family Practice [facility] [address] [facility] [place] [address] Jarrod Moseley DO [address] [place] [address] Allergies Active Allergy Reactions Criticality Noted Date Comments Codeine 02/25/2001 Erythromycin 02/25/2001 documented as of this encounter (statuses as of 11/06/2023) Medications Medication Sig Dispensed Refills Start Date End Date Status FISH OIL 500 MG PO CAPS 2 daily 0 10/23/2005 A ctive RED YEAST RICE 600 MG PO TABS one daily 06/07/2009 Active Misc Natural Products (APPLE CIDER VINEGAR) TABS Take by mouth daily. 06/20/2016 Active Osteo Bi-Flex Adv Joint Shield Oral Tablet Take 1 Tab by mouth daily. Active Loratadine 10 MG Oral Tablet (Claritin)Indications:Se asonal allergic rhinitis due to pollen Take 1 Tablet by mouth in the morning. 30 Tab 5 10/21/2020 Active Zoster Vac Recomb Adjuvanted 50 MCG/0.5ML Intramuscular Suspension Reconstituted (Shingrix) Inject 0.5 mL into a large muscle now and repeat dose in 60 to 180 days 1 Each 1 10/25/2021 Active documented as of this encounter (statuses as of 11/06/2023) Active Problems Problem Noted Date Diagnosed Date [...] as of this encounter (statuses as of 11/06/2023) Resolved Problems Problem Noted Date Diagnosed Date Resolved Date Nonintractable epilepsy with out status epilepticus 06/20/2016 10/21/2020 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 018 GENERALIZED CONVULSIVE EPILE PSY; WITH INTRACTABLEEPILEPSY 01/29/2003 06/20/2016 Overview: remote hx since infancy HYPERTENSION NOS 07/19/2001 06/17/2007 documented as of this encounter (statuses as of 11/06/2023) Immunizations Name Administration Dates Next Due COVID-19 mRNA, LNP-s, No Pre serve, 2-Dose Series ([facility]) 07/13/2020,06/17/2020 Covid-19, Mrna, Lnp-s, Pf, B ivalent, 30 Mcg, IM, 12 yrs and above ([employer]) 01/02/2022 Pneumococcal Conjugate Vacc, 13 Valent (Prevnar) 06/20/2016 Pneumococcal Polysaccharide PPV23 (Pneumovax) 02/28/2007 Seasonal Influenza, Quadriva lent, No Preserve, IM 01/01/2018,12/13/2016 Seasonal Influenza, Split, I IV3, With Preserve, Inj 01/24/2016,02/20/2015,01/17/2014,01/09,01/31/2012,01/03/2011,12/30/2009 ,02/09/2009,02/05/2008,02/28/2007,01/15 Seasonal Influenza, Trivalen t, Adjuvanted, 65+ yrs 12/11/2019,01/28/2019 Varicella Zoster Vaccine (Adult) 06/18/2013 Zoster Vaccine [...] on file documented as of this encounter Miscellaneous Notes * Telephone Encounter - Erica Ruano CPhT - 2023 2:50 PM EDT Patient calling stating she received missed call regarding a medication. Informed patient there is no notes regarding anything for her. Thank you, Erica Ruano, Sales Representative [employer] [facility] 2023, 2:56 PM documented in this encounter Plan of Treatment Upcoming Encounters Date Type Department Care Team (Late st Contact Info) Description 11/13/2023 11:00 AM EDT Office Visit Family Practice [facility] [address] [place] [id number] Jarrod Moseley DO [address] [facility] [place] [address] Health Maintenance Due Date Last Done Comments DTaP,Tdap,and Td Vaccines (1 - Tdap) 08/06/1959 DXA Scan 06/28/2016 06/28/2009, 06/28/2009 Depression Screening 10/21/2020 10/22/2019 COVID-19 Vaccine (4 - 2022- season) 2022 01/02/2022, 07/13/2020, 06/17/2020 Influenza Vaccine (FLU shot) (#1) 2023 01/29/2023, 12/06/2021, 12/09/2020, Additional history exists Pneumococcal Vaccine: 65+ Years Completed 06/20/2016, 02/28/2007 [...] Not on filedocumented as of this encounter Care Teams Industrial Gas Fitter Relationship Specialty Start Date End Date Jarrod Moseley DO [address] [place] [id number] PCP - General Family Medicine 02/08/21 documented as of this encounter
--- OUTSIDE RECORDS SUMMARY | 2023-12-13 07:30 | External Medical Summary | Summary of Care ---
Author Name Unknown Organization [facility] Address [address] [place] [address] Phone [phone] Care Team Providers Care Fiberglass Luggage Molder Name Role Phone Jarrod Moseley DO Primary Care Provider [phone] Reason for Visit * Reason Onset Date Comments Physical-Exam Immunizations 11/13/2023 Encounter Details Date Type Department Care Team (Latest Contact Info) Description 11/13/2023 11:00 AM EDT Office Visit Family Practice [facility] [address] [place] [address] Jarrod Moseley DO [address] [place] [address] Routine medical exam*; Alkaline phosphatase elevation; Bilateral primary osteoarthritis of knee; Acute otitis externa of right ear, unspecified type; Need for olwaqntkaf-fjlhfak-vrfo ussis (Tdap) vaccine Allergies Active Allergy Reactions Criticality Noted Date [...] daily. Active Loratadine 10 MG Oral Tablet (Claritin)Indicatio ns:Seasonal allergic rhinitis due to pollen Take 1 Tablet by mouth in the morning. 30 Tab 5 10/21/2020 Active Potassium Chloride Monisha ER 10 MEQ Oral Tablet Extended ReleaseIndications: Bilateral leg edema TAKE 1 TABLET EVERY DAY 90 Tablet 1 08/09/2023 Active Primidone 250 MG Oral Tablet (Mysoline)Indicatio ns:Other generalized epilepsy, not intractable, without status epilepticus (HCC) TAKE 1 TABLET TWICE DAILY 180 Tablet 3 08/09/2023 Active hydroCHLOROthiazide 50 MG Oral Tablet (Hydrodiuril)Indica tions:Bilateral leg edema TAKE 1 TABLET EVERY DAY 90 Tablet 1 08/09/2023 Active Adacel 5-2-15.5 LF-MCG/0.5 Intramuscular Suspension (Gpfbues-Puoevv-Eaf ll Pertussis) Inject 0.5 mL into a large muscle once for 1 dose. 0.5 mL 11/13/2023 4 Active Neomycin-Polymyxin- HC 3.5-54748-7 Otic SolutionIndications :Acute otitis externa of right ear, unspecified type Administer 4 Drops to the right ear in the morning and 4 Drops at noon and 4 Drops before bedtime. Do all this for 10 days. In affected ear.. 10 mL 11/13/2023 4 Active Zoster Vac Recomb Adjuvanted 50 MCG/0.5ML Intramuscular Suspension Reconstituted (Shingrix) Inject 0.5 mL into a large muscle now and repeat dose in 60 to 180 days 1 Each 1 10/25/2021 4 Discontinue d(Medicatio n List Clean Up) documented as of this encounter (statuses as [...] mRNA, LNP-s, No Pre serve, 2-Dose Series ([employer]) 08/11/2021,01/25/2021,07/13/2020,06/17 Covid-19, Mrna, Lnp-s, Pf, B ivalent, 30 Mcg, IM, 12 yrs and above ([email or web address]) 01/02/2022 Pneumococcal Conjugate Vacc, 13 Valent (Prevnar) [...] on file documented as of this encounter Last Filed Vital Signs Vital Sign Reading Time Taken Comments Blood Pressure 116/62 11/13/2023 11:06 AM EDT Pulse - - Temperature 36.7 C (98 F) 11/13/2023 11:06 AM EDT Respiratory Rate - - Oxygen Saturation - - Inhaled Oxygen Concentration - - Weight 97.8 kg (215 lb 9.6 oz) 11/13/2023 11:06 AM EDT Height 152.4 cm (5') 11/13/2023 11:06 AM EDT Body Mass Index 42.11 11/13/2023 11:06 AM EDT documented in this encounter Patient Instructions * Patient Instructions* Laura King CMA - 11/13/2023 11:39 AM EDT ~~PATIENT INSTRUCTIONS FOR TDAP VACCINE~~ Possible side effects of TDAP vaccine, (tetanus shot), are usually mild and can include: 1. Soreness or redness at injection site 2. Low grade fever 3. Body aches You may use a fever / pain reducing medication as needed for these symptoms. LET YOUR DOCTOR KNOW IMMEDIATELY IF YOU HAVE DIFFICULTY BREATHING OR SWALLOWING, EXPERIENCE ITCHINGOF FEET OR HANDS, HAVE SWELLING OF EYES, FACE OR INSIDE OF NOSE. documented in this encounter Progress Notes * Laura King CMA - 11/13/2023 11:39 AM EDT Immunization Administration Documentation Time Out Procedure Performed: Yes Patient Identified (Ask Name/Date of ): Yes Does the patient have a fever greater than 101 degrees today? No Patient allergic to latex? No VFC Stock: No Injection(s) verified: Yes, Injection Name: TDaP Verified Side and Site: Yes Verified Shot(s) with Parent(s)/Patient: Yes * Jarrod Moseley DO - 11/13/2023 11:17 AM EDT Subjective: Ngoc Banuelos is a 83 year old female. Chief Complaint Patient presents with Physical-Exam HPI: PT here for a physial. Fall yesterday and a month ago. One landed on her bottom and one on her abdomen. I offered PT and ortho for her to help her walking. I pushed her to try PT to avoid falls. She will not do it. PMHx, PSHx, SHx, FHx, Medications, and Allergies fully reviewed TDaP offered. Does not want it today. Has a few new great grandchildren. No desire for DEXa scan. Patient Active Problem List Diagnosis Allergic rhinitis ADVANCE DIRECTIVE INFORMATION DIFFUS CYSTIC MASTOPATHY Alkaline phosphatase elevation Obesity, Class II, BMI 35-39.9 ([facility]) Dyslipidemia, goal LDL below 160 Other generalized epilepsy and epileptic syndromes, not intractable, without status epilepticus ([facility]) Bilateral primary osteoarthritis of knee Body mass index (BMI) of 40.0 to 44.9 in adult ([facility]) Current Outpatient Medications Medication Sig Dispense Refill FISH OIL 500 MG PO CAPS 2 daily 0 RED YEAST RICE 600 MG PO TABS one daily Misc Natural Products (APPLE CIDER VINEGAR) TABS Take by mouth daily. Osteo Bi-Flex Adv Joint Shield Oral Tablet Take 1 Tab by mouth daily. Loratadine 10 MG Oral Tablet (Claritin) Take 1 Tablet by mouth in the morning. 30 Tab 5 Potassium Chloride Monisha ER 10 MEQ Oral Tablet Extended Release TAKE 1 TABLET EVERY DAY 90 Tablet 1 Primidone 250 MG Oral Tablet (Mysoline) TAKE 1 TABLET TWICE DAILY 180 Tablet 3 hydroCHLOROthiazide 50 MG Oral Tablet (Hydrodiuril) TAKE 1 TABLET EVERY DAY 90 Tablet 1 No current facility-administered medications for this visit. Review of patient's allergies indicates: Allergen Reactions Codeine Erythromycin OBJECTIVE: BP 116/62 | Temp 36.7 C (98 F) | Ht 1.524 m (5') | Wt 97.8 kg (215 lb 9.6 oz) | BMI 42.11 kg/m | BSA 2.03 m Estimated body mass index is 42.11 kg/m as calculated from the following: Height as of this encounter: 1.524 m (5'). Weight as of this encounter: 97.8 kg (215 lb 9.6 oz). BP Readings from Last 3 Encounters: 11/13/23 116/62 10/30/22 118/60 08/02/22 140/72 Wt Readings from Last 3 Encounters: 11/13/23 97.8 kg (215 lb 9.6 oz) 10/30/22 93 kg (205 lb) 08/02/22 91.6 kg (202 lb) ROS: General: No change in weight, No weakness, No fatigue and No fevers, sweats, or chills Head: No significant headache and No recent significant head injury Eyes: No recent significant change in vision, No eye pain, redness, discharge, or excessive tearing, No diplopia and No h/o cataracts or glaucoma Ears: Some R ear purulent drainage. Nose: No h/o frequent colds or sinusitis, No nasal stuffiness, No h/o hay fever and No significant epistaxis Throat/Oropharynx: No teeth or gum problems, No bleeding gums, No tongue complaints, No sore throatand No recent change in voice or hoarseness Neck: No complaint of lumps in neck, No swollen glands, No recent swelling in thyroid area and No significant pain in neck Breast: No new breast lumps, No severe breast pain, No nipple discharge, No recent change in shape/contor and Patient does perform monthly self breast exam Respiratory: No cough, sputum, or hemoptysis, No wheezing, No shortness of breath and No recent change in breathing Cardiac: No chest pain, No shortness of breath, No dyspnea on exertion, No orthopnea, No paroxysmalnocturnal dyspnea, No edema, No palpitations and No syncope Gastrointestinal: No dysphagia, No significant heartburn, No significant change in appetite, No nausea, vomiting, diarrhea, or constipation, No hematemesis, No blood in stools or black tarry stools, No abdominal bloating or early satiety and No abdominal pain Urinary: No urinary frequency, No dysuria, No hematuria, No urinary urgency, No polyuria, No nocturia, No incontinence, No hesitancy and No sensation of incomplete voiding Musculoskeletal: No joint pain or stiffness, No arthritis, No backache, No muscle pains or cramps and No joint swelling Hematologic: No anemia, No easy bruising or abnormal bleeding and No history of transfusion Neurologic: No fainting or blackouts, No seizures, No paralysis or focal weakness, No numbness or tingling, No tremors and No significant problems with memory PHYSICAL EXAM: General: alert, healthy and no distress Head: Normocephalic, No masses, lesions, tenderness or abnormalities Ears: External ears normal, Canals clear, TM's Normal Nose: no mucosal erythema, no mucosal edema, no purulent discharge Oropharynx: no exudate, no erythema, lips, buccal mucosa, and tongue normal and mucous membranes are moist Heart: regular rate & rhythm, no murmurs and no gallops Lungs: chest symmetric with normal AP diameter, no chest deformities noted, no chest wall tenderness, lungs clear to auscultation Abdomen: abdomen soft, non-tender, normal bowel sounds and no masses or organomegaly Extremities: less than 2 second capillary refill, no joint deformities, effusion, or inflammation ASSESSMENT/Plan Routine medical exam (Primary) Alkaline phosphatase elevation - COMPREHENSIVE METABOLIC PANEL; Future; Expected date: 11/13/2023 Bilateral primary osteoarthritis of knee - COMPREHENSIVE METABOLIC PANEL; Future; Expected date: 11/13/2023 Acute otitis externa of right ear, unspecified type - Dptiyodz-Lvfavrgxw-ZF 3.5-25800-1 Otic Solution; Administer 4 Drops to the right ear in the morning and 4 Drops at noon and 4 Drops before bedtime. Do all this for 10 days. In affected ear.. Need for quzixqohih-wrwlvpz-iailzqifm (Tdap) vaccine - TDAP (AGE 7 AND OLDER), ADACEL Other orders - Adacel 5-2-15.5 LF-MCG/0.5 Intramuscular Suspension (Zcnqetm-Okduzu-Evsbv Pertussis); Inject 0.5 mL into a large muscle once for 1 dose. I spent a total of 30 minutes on the date of service in preparation, delivery, and documentation ofthe care provided to this patient, excluding any time spent on the performance of any procedure or separately billable services. Dental and sun care discussed along with weight. The above was discussed and understanding was expressed. Jarrod Moseley DO documented in this encounter Nursing Notes * Laura King CMA - 11/13/2023 11:14 AM EDT Ngoc Edita Banuelos presents for annual physical exam. Medications & HM reviewed. Denies any concerns today. documented in this encounter Plan of Treatment Upcoming Encounters Date Type Department Care Team (Late st Contact Info) Description 11/17/2024 10:20 AM EDT Office Visit Family Practice [facility] [address] [facility] [place] [address] Jarrod Moseley DO [address] [facility] [place] [address] Health Maintenance Due Date Last Done Comments DXA Scan 06/28/2016 06/28/2009, 06/28/2009 Depression Screening 10/21/2020 10/22/2019 COVID-19 Vaccine ( season) 2022 01/02/2022, 08/11/2021, 01/25/2021, Additional history [...] Not on filedocumented as of this encounter Results * (ABNORMAL) COMPREHENSIVE METABOLIC PANEL (11/13/2023 12:00 PM EDT) BUN 22(H) 6 - 20 mg/dL 11/13/2023 1:01 PM EDT [facility]- Creatinine 0.9 0.5 - 1.0 mg/dL 11/13/2023 1:01 PM EDT [facility]- Estimated Glomerular Filtration Rate 65 >=60 mL/min 11/13/2023 1:01 PM EDT [facility]- Comment:eGFR is calculated b ased on the CKD-EPI 2020 equation. Sodium 142 135 - 146 mmol/L 11/13/2023 1:01 PM EDT [facility]- Potassium 4.7 3.5 - 5.1 mmol/L 11/13/2023 1:01 PM EDT [facility]- Chloride 104 98 - 107 mmol/L 11/13/2023 1:01 PM EDT [facility]- CO2 25 22 - 32 mmol/L 11/13/2023 1:01 PM EDT [facility]- Anion Gap 13 7 - 15 mmol/L 11/13/2023 1:01 PM EDT [facility]- Glucose 101 70 - 120 mg/dL 11/13/2023 1:01 PM EDT [facility]- Albumin 4.0 3.8 - 5.0 g/dL 11/13/2023 1:01 PM EDT [facility]- AST 18 10 - 35 U/L 11/13/2023 1:01 PM EDT [facility]- Alkaline Phosphatase 136(H) 35 - 130 U/L 11/13/2023 1:01 PM EDT [place] [address]- Bilirubin, Total <0.2 <=1.2 mg/dL 11/13/2023 1:01 PM EDT [place] [address]- Calcium 9.5 8.4 - 10.2 mg/dL 11/13/2023 1:01 PM EDT [place] [address]- Protein 6.6 6.0 - 8.3 g/dL 11/13/2023 1:01 PM EDT [place] [address]- ALT 11 10 - 35 U/L 11/13/2023 1:01 PM EDT [facility]- Blood Venous blood specimen / Unknown Venipuncture / Unknown 11/13/2023 12:00 PM EDT 11/13/2023 12:00 PM EDT Jarrod Moseley DO LAB BLOOD ORDERABLE S [facility] [address] [place] [address] documented in this encounter Visit Diagnoses Diagnosis Routine medical exam- Primary Routine general medical examination at a health care facility Alkaline phosphatase elevation Other nonspecific abnormal serum enzyme levels Bilateral primary osteoarthritis of knee Acute otitis externa of right ear, unspecified type Need for hgyputmfkk-cofkzed-giklywdyo (Tdap) vaccine Need for prophylactic vaccination with combined nnvsqejxes-pyaqaip-ftjbibrng (DTP) vaccine documented in this encounter Care Teams Fiberglass Luggage Molder Relationship Specialty Start Date End Date [facility] [address] [facility] [address] PCP - General Family Medicine 02/08/21 documented as of this encounter"
--- OUTSIDE RECORDS SUMMARY | 2023-12-13 07:30 | External Medical Summary | Summary of Care ---
Author Name Unknown Organization [facility] Address [address] [place] [address] Phone [phone] Care Team Providers Care Recording Clerk Name Role Phone Sharda Smith DO Primary Care Provider [phone] Reason for Visit * Reason Comments eRx-Medication Refill Encounter Details Date Type Department Care Team (Late st Contact Info) Description 08/08/2023 Refill Family Practice [facility] [address] [facility] [place] [address] Sharda Smith DO [address] [place] [address] Bilateral leg edema; Other generalized epilepsy, not intractable, without status epilepticus (HCC) Allergies Active Allergy Reactions Criticality Noted Date Comments Codeine 02/25/2001 Erythromycin 02/25/2001 documented as of this encounter (statuses as of 08/09/2023) Medications Medication Sig Dispensed Refills Start Date End Date Status FISH OIL 500 MG PO CAPS 2 daily 0 10/23/2005 Active RED YEAST RICE 600 MG PO TABS one daily 0 06/07/2009 Active Misc Natural Products (APPLE CIDER VINEGAR) TABS Take by mouth daily. 0 06/20/2016 Active Osteo Bi-Flex Adv Joint Shield Oral Tablet Take 1 Tab by mouth daily. 0 Active Loratadine 10 MG Oral Tablet (Claritin)Indicatio ns:Seasonal allergic rhinitis due to pollen Take 1 Tablet by mouth in the morning. 30 Tab 5 10/21/2020 Active Zoster Vac Recomb Adjuvanted 50 MCG/0.5ML Intramuscular Suspension Reconstituted (Shingrix) Inject 0.5 mL into a large muscle now and repeat dose in 60 to 180 days 1 Each 1 10/25/2021 Active Potassium Chloride Omnisha ER 10 MEQ Oral Tablet Extended ReleaseIndications: [...] EVERY DAY 90 Tablet 1 08/09/2023 Active hydroCHLOROthiazide 50 MG Oral Tablet (Hydrodiuril)Indica tions:Bilateral leg edema TAKE 1 TABLET EVERY DAY 90 Tablet 1 01/01/2023 4 Discontinued Primidone 250 MG Oral Tablet (Mysoline)Indicatio ns:Other generalized epilepsy, not intractable, without status epilepticus (HCC) TAKE 1 TABLET TWICE DAILY 180 Tablet 1 01/01/2023 4 Discontinued Potassium Chloride Monisha ER 10 MEQ Oral Tablet Extended ReleaseIndications: Bilateral leg edema TAKE 1 TABLET EVERY DAY 90 Tablet 1 01/01/2023 4 Discontinued documented as of this encounter (statuses as of 08/09/2023) Active Problems Problem Noted Date Diagnosed Date [...] as of this encounter (statuses as of 08/09/2023) Resolved Problems Problem Noted Date Diagnosed Date Resolved Date Nonintractable epilepsy with out status epilepticus 06/20/2016 10/21/2020 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 GENERALIZED CONVULSIVE EPILE PSY; WITH INTRACTABLEEPILEPSY 01/29/2003 06/20/2016 Overview: remote hx since infancy HYPERTENSION NOS 07/19/2001 06/17/2007 documented as of this encounter (statuses as of 08/09/2023) Immunizations Name Administration Dates Next Due COVID-19 mRNA, LNP-s, No Pre serve, 2-Dose Series ([employer]) 07/13/2020,06/17/2020 Covid-19, Mrna, Lnp-s, Pf, B ivalent, 30 Mcg, IM, 12 yrs and above ([employer]) 01/02/2022 Pneumococcal Conjugate Vacc, 13 Valent (Prevnar) [...] Answer Date Recorded PHQ-2 Score 0 10/22/2019 Sex and Gender Information Value Date Recorded Sex Assigned at Not on file Gender Identity Not on file Sexual Orientation Not on file Job Start Date Occupation Industry Not on file Not on file Not on file documented as of this encounter Miscellaneous Notes * Telephone Encounter - Sharda Smith DO - 08/09/2023 11:42 AM EDTSigned Prescriptions: Disp Refills Potassium Chloride Monisha ER 10 MEQ Oral Tab*90 Tab*1 Sig: TAKE 1 TABLET EVERY DAY Authorizing Provider: SHARDA SMITH Ordering User: ROSHNI BRADLEY Primidone 250 MG Oral Tablet (Mysoline) 180 Ta*3 Sig: TAKE 1 TABLET TWICE DAILY Authorizing Provider: SHARDA SMITH hydroCHLOROthiazide 50 MG Oral Tablet (Hyd*90 Tab*1 Sig: TAKE 1 TABLET EVERY DAY Authorizing Provider: SHARDA SMITH Ordering User: ROSHNI BRADLEY * Telephone Encounter - Roshni Bradley RP - 08/09/2023 8:51 AM EDTPending Prescriptions: Disp Refills Primidone 250 MG Oral Tablet (Mysoline) 180 Ta*3 Sig: TAKE 1 TABLET TWICE DAILY Signed Prescriptions: Disp Refills Potassium Chloride Monisha ER 10 MEQ Oral Tab*90 Tab*1 Sig: TAKE 1 TABLET EVERY DAY Authorizing Provider: SHARDA SMITH Ordering User: ROSHNI BRADLEY hydroCHLOROthiazide 50 MG Oral Tablet (Hyd*90 Tab*1 Sig: TAKE 1 TABLET EVERY DAY Authorizing Provider: SHARDA SMITH Ordering User: ROSHNI BRADLEY * Telephone Encounter - Roshni Bradley RPh - 08/09/2023 8:50 AM EDT Did you pend patient's preferred pharmacy and medication before forwarding?yes Pharmacy: [facility] [address] [place] Pending Prescriptions: Disp Refills Primidone 250 MG Oral Tablet (Mysoline) [*180 Ta*3 Sig: TAKE 1 TABLET TWICE DAILY Signed Prescriptions: Disp Refills Potassium Chloride Monisha ER 10 MEQ Oral Tab*90 Tab*1 Sig: TAKE 1 TABLET EVERY DAY Authorizing Provider: SHARDA SMITH Ordering User: ROSHNI BRADLEY hydroCHLOROthiazide 50 MG Oral Tablet (Hyd*90 Tab*1 Sig: TAKE 1 TABLET EVERY DAY Authorizing Provider: SHARDA SMITH Ordering User: ROSHNI BRADLEY Last Visit: 10/30/2022 (in office), Visit date not found (telemedicine) Next Visit: 11/07/2023 If no future appointments scheduled, and last appointment is greater than a year ago, please schedule patient for a follow-up appointment Last date the medication was ordered: 01/01/23 Is this request for a controlled substance?No Urine Drug Screen:No results found for this or any previous visit. Patient Phone Numbers Labs: Lab Results Component Value Date/Time CREAT 0.9 10/30/2022 11:19 AM CREAT 0.7 10/22/2019 11:05 AM POTASSIUM 4.8 10/30/2022 11:19 AM POTASSIUM 4.1 10/22/2019 11:05 AM TSH 3.32 06/26/2017 01:25 PM LDLCALC 159 (H) 10/21/2020 11:47 AM LDLCALC 162 (H) 10/22/2019 11:05 AM LDLDIRECT NOT APPLICABLE 10/22/2019 11:05 AM LDLDIRECT 155 (H) 06/26/2017 01:25 PM ALT 13 10/21/2020 11:47 AM ALT 11 10/22/2019 11:05 AM documented in this encounter Plan of Treatment Upcoming Encounters Date Type Department Care Team (Late st Contact Info) Description 11/07/2023 10:00 AM EDT Office Visit Family Practice [facility] [address] [place] [address] Sharda Smith DO [address] [place] [id number] Health Maintenance Due Date Last Done Comments DTaP,Tdap,and Td Vaccines (1 - Tdap) 08/06/1959 DXA Scan 06/28/2016 06/28/2009, 06/28/2009 Depression Screening 10/21/2020 10/22/2019 COVID-19 Vaccine ( season) 2022 01/02/2022, 07/13/2020, 06/17/2020 Influenza Vaccine (FLU shot) (Season Ended) 2023 12/06/2021, 12/09/2020, 12/11/2019, Additional history exists Pneumococcal Vaccine: 65+ Years Completed 06/20/2016, 02/28/2007 Zoster Vaccines Completed 09/04/2022, 04/17, 06/18/2013 GARDASIL-HPV IMMUNIZATION SERIES Aged Out No longer eligible based on patient's age to complete this topic Hepatitis B Aged Out No longer eligi ble based on patient's age to complete this topic MENINGOCOCCAL (MENACTRA/MENVEO) Aged Out No longer eligible based on patient's age to complete this topic documented as of this encounter Medical Devices Not on filedocumented as of this encounter Visit Diagnoses Diagnosis Bilateral leg edema Edema Other generalized epilepsy, not intractable, without status epilepticus (HCC) documented in this encounter Care Teams Recording Clerk Relationship Specialty Start Date End Date Sharda Smith DO [address] [place] [id number] PCP - General Family Medicine 02/08/21 documented as of this encounter
--- OUTSIDE RECORDS SUMMARY | 2023-12-13 07:30 | External Medical Summary ---
Author Name Unknown Address Unknown Organization K09:[facility] - [address] [place] [address] Laboratory Report Ordering Provider Test Date Status SARAH ROBIN 11/13/2023 12:00:56 Final Observation Date Value Abnormality Reference (Units ) Status BUN 11/13/2023 12:00:56 22 Above high normal 6-20 (mg/dL) Final Creatinine 11/13/2023 12:00:56 0.9 0.5-1.0 (mg/dL) Final Glomerular filtration rate/1.73 sq M.predicted [Volume Rate/Area] in Serum, Plasma or Blood by Creatinine-based formula (CKD-EPI) 11/13/2023 12:00:56 65 >=60 (mL/min) Final eGFR is calculated based on the CKD-EPI 2020 equation. Sodium 11/13/2023 12:00:56 142 135-146 (m mol/L) Final Potassium 11/13/2023 12:00:56 4.7 3.5-5.1 (m mol/L) Final Cl 11/13/2023 12:00:56 104 98-107 (mm ol/L) Final CO2 11/13/2023 12:00:56 25 22-32 (mmo l/L) Final Anion gap 11/13/2023 12:00:56 13 7-15 (mmol /L) Final Glucose 11/13/2023 12:00:56 101 70-120 (mg /dL) Final Albumin 11/13/2023 12:00:56 4.0 3.8-5.0 (g /dL) Final AST (Aspartate aminotransferase) 11/13/2023 12:00:56 18 10-35 (U/L) Fin al Alk Phos 11/13/2023 12:00:56 136 Above high normal 35 -130 (U/L) Final Bilirubin, Total 11/13/2023 12:00:56 <0.2 <=1 .2 (mg/dL) Final Calcium 11/13/2023 12:00:56 9.5 8.4-10.2 ( mg/dL) Final Protein 11/13/2023 12:00:56 6.6 6.0-8.3 (g /dL) Final ALT (Alanine aminotransferase) 11/13/2023 12:00:56 11 10-35 (U/L) Steve leavitt Performing Location [facility] [address]
[2023-12-13 08:11] LABS: ANTI-Xa, UFH(UnfractionatedHep 0.54 IU/ml (0.3-0.7); Basophils # (auto) 0.01 K/uL (0.00-0.20); Basophils % (auto) 0.2 %; Eosinophils # (auto) 0.29 K/uL (0.00-0.50); Eosinophils % (auto) 4.4 %; Hematocrit (blood only) 24.4 % (37.0-47.0); Hemoglobin 7.4 g/dl (12.0-16.0); Immature Granulocytes # (auto) 0.01 K/uL (0.01-0.20); Immature Granulocytes % (auto) 0.2 %; Lymphocytes # (auto) 1.76 K/uL (1.20-3.40); Lymphocytes % (auto) 26.9 %; Mean Corpuscular Hemoglobin 20.8 pg (25.0-34.0); Mean Corpuscular Hgb Conc 30.3 g/dL (32.0-36.0); Mean Corpuscular Volume 68.7 fL (80.0-100.0); Monocytes # (auto) 0.74 K/uL (0.11-0.59); Monocytes % (auto) 11.3 %; Neutrophils # (auto) 3.73 K/uL (1.40-6.50); Nucleated RBC # (auto) 0.04 K/uL (0.00-0.12); Nucleated RBC % (auto) 0.6 %; RDW Coefficient of Variation 21.9 % (11.5-14.5); RDW Standard Deviation 52.5 fL (36.4-46.3); Red Blood Count 3.55 M/uL (4.20-5.40); White Blood Count 6.54 K/ul (4.8-10.8)
[2023-12-13 08:16] LABS: Mean Platelet Volume 10.3 fL (9.4-12.4); Platelet Count 348 K/uL (130-400)
[2023-12-13 08:24] LABS: Albumin Level 3.7 gm/dl (3.4-5.0); Bilirubin,Total 0.3 mg/dl (0.2-1.0); Calcium 8.4 mg/dl (8.6-10.3); Magnesium 1.7 mg/dl (1.7-2.4); Potassium 3.7 mmol/L (3.5-5.1)
[2023-12-13 08:30] LABS: Albumin Globulin Ratio 1.4 (0.9-2); BUN Creatinine Ratio 20.5 (10-20); Creatinine Clr Calc Pharmacy 49.8 ml/min; Est GFR (African American) 69.9 ml/min; Est GFR (Non-African American) 60.3 ml/min; Globulin 2.7 gm/dl (2.5-4.0); Phosphorus 3.7 mg/dl (2.5-4.9); Total Protein 6.4 gm/dl (6.0-8.3)
[2023-12-13 08:39] LABS: Anisocytosis Present; Microcytosis Present; Polychromasia 1+
[2023-12-13 08:52] LABS: Troponin I High Sensitivity 15.1 pg/ml (0-14)
[2023-12-13] MEDS: LORATADINE 10 MG TAB PO SCH (09:04)
[2023-12-13] MEDS: POTASSIUM CHLORIDE 10 MEQ TABCR PO SCH (09:04)
[2023-12-13] MEDS: PANTOprazole 40 MG TAB PO SCH (09:04)
--- NOTE | 2023-12-13 09:11 | Ultrasound Report ---
ULTRASOUND BILATERAL LOWER EXTREMITY VENOUS CLINICAL HISTORY: Pulmonary embolus COMPARISON STUDY: No priors TECHNIQUE: Real-time, grayscale, and color Doppler sonography of the deep veins of the right and left lower extremity was performed from the inguinal crease to the calf. Compression and augmentation wer e utilized. FINDINGS: Right lower extremity: There is no sonographic evidence of deep venous thrombosis in the right lower extremity. The common femoral, superficial femoral, and popliteal veins are patent and normally compr essible. The greater saphenous vein and the profunda femoris vein at the junction with the common fem oral vein are clear. The visualized calf veins are patent. Left lower extremity: There is nearly occlusive to occlusive deep venous thrombosis in the calf withi n the peroneal veins. The remaining calf vessels are patent. The common femoral, superficial femoral, and popliteal veins are patent and normally compressible. The greater saphenous vein and the profund a femoris vein at the junction with the common femoral vein are clear. IMPRESSION: 1. There is deep venous thrombosis in the left calf within the peroneal veins. 2. The remaining deep veins of the left lower extremity are clear. 3. There is no sonographic evidence of deep venous thrombosis in the right lower extremity. ACT 112: Negative or not required by law. Electronically signed by: Johnathan Gresham M.D. 12/13/2023 9:10 AM
[2023-12-13 13:17] LABS: Hematocrit (blood only) 23.7 % (37.0-47.0); Hemoglobin 7.5 g/dl (12.0-16.0)
--- NOTE | 2023-12-13 14:23 | Hospitalist Progress Note ---
Date of Service December 13, 2023 Assessment & Plan (1) Weakness: (2) Pulmonary embolism: (3) Symptomatic anemia: (4) Acute hypoxic respiratory failure: Plan 83 year old womn with PMHx significant for HTN, seizure disorder, HLD who presents with progressive SOB over the last few weeks. Acute hypoxic respiratory Failure Pt with oxygen saturation in the 80s at times Due to bilateral PE and anemia Wean oxygen as tolerated Bilateral pulmonary emboli Left DVT Presented with progressive SOB CTA chest noting extensive bilateral pulmonary emboli Currently on hep gtt Doppler showed Left DVT in peroneal veins If remains hemodynamically stable in another 24h, transition to DOAC Microcytic Anemia Iron deficiency anemia Pt presenting with progressive SOB Hgb of 5.6 on admission, last CBC per [facility] in October 2020 with hgb of 13.9 MCV in the 60s Denied any bleeding FOBT per ED provider negative Anemia work up show severe iron deficiency CT abd/pelvis with no obvious cause Got 2U of pRBCs in the ED Hb stable in 7s I discussed possible endoscopy for occult GI bleed. Patient declined getting colonoscopy/EGD Follow up heme outpatient IV venofer ordered Elevated Trop Cardiomegaly Trop mildly elevated at 14.2 Likely demand ischemia in setting of above Trend to peak BNP of 200 with cardiomegaly noted on chest XR, echo pending as above, r/o CHF TTE showed mod conc LVH, EF 55-60%, mild MR, Grade II diastolic dysfunction Cardiology consult Hiatal hernia Moderate to large, noted on imaging Seizure disorder Continue home primidone HTN Home HCTZ on hold Diet: HH DVT prophylaxis: IV heparin I called son who is an RN here and updated him PT/OT pattial I spent a total of 55 minutes coordinating, documenting and providing care for this patient excluding time spent in performance of separately billed services Admission and Anticipated Discharge Date Admission Date: December 12, 2023 Subjective Patient seen and examined Reports fatigue, exertional dyspnea are mildly improved Denied cough, chest pain Denied dizziness, nausea, vomiting, abd pain, diarrhea, constipation Denied melena, hematochezia, hematuria or any bleeding from anywhere Physical Exam Constitutional: + well hydrated; no acute distress Eyes: PERRL, conjunctivae normal, anicteric sclerae ENMT: external ear and nose normal, oropharynx normal Respiratory: normal respiratory effort, lungs clear to auscultation Cardiovascular: Rate/Rhythm: regular rate and regular rhythm S1 S2 Gastrointestinal (Abdomen): normal bowel sounds, soft, nontender, no hepatosplenomegaly Musculoskeletal: +pedal edema Neurologic: PERRL, EOMI, accommodation nl, no face palsy, no dysarthria Psychiatric: A+Ox3, euthymic affect Results & Data Results & Data Vital Signs (Past 12 Hours) Vital Signs Temp Pulse Pulse Resp BP BP Pulse Ox 12/13/23 12:41 36.7 C 78 19 151/79 H 94 12/13/23 11:02 76 20 135/58 L 94 12/13/23 07:52 71 12/13/23 07:42 72 20 176/91 H 95 12/13/23 06:28 73 119/61 96 12/13/23 04:15 74 119/61 94 O2 Del Method O2 Flow Rate 12/13/23 12:41 Nasal Cannula 2 12/13/23 11:02 Nasal Cannula 2 12/13/23 07:52 12/13/23 07:42 Nasal Cannula 2 12/13/23 06:28 Nasal Cannula 2 12/13/23 04:15 Nasal Cannula 2 Laboratory Results Abnormal lab results 12/12/23 12/12/23 12/12/23 Range/Units 13:55 15:31 19:15 RBC 3.08 L (4.20-5.40) M/uL Hgb 5.6 L* (12.0-16.0) g/dl Hct 19.8 L* (37.0-47.0) % MCV 64.3 L (80.0-100.0) fL MCH 18.2 L (25.0-34.0) pg MCHC 28.3 L (32.0-36.0) g/dL RDW Std Deviation (36.4-46.3) fL RDW Coeff of Kendal 18.3 H (11.5-14.5) % Plt Count 413 H (130-400) K/uL [place] # (Auto) 0.63 H (0.11-0.59) K/uL BUN/Creatinine Ratio 21.3 H (10-20) Glucose (70-99(Fasting)) mg/dl Calcium (8.6-10.3) mg/dl Iron < 10 L (35-150) mcg/dl Unsaturated IBC 507 H (155-355) mcg/dl Ferritin 4.8 L (8-388) ng/ml ALT (7-52) U/L Alkaline Phosphatase 126 H (34-104) U/L Troponin I High Sens 14.2 H 18.4 H D (0-14) pg/ml B-Natriuretic Peptide 200 H (0-100) pg/ml Crossmatch See Detail 12/13/23 12/13/23 12/13/23 Range/Units 01:35 07:44 07:52 RBC 3.55 L (4.20-5.40) M/uL Hgb 7.5 L 7.4 L (12.0-16.0) g/dl Hct 24.5 L 24.4 L (37.0-47.0) % MCV 68.7 L D (80.0-100.0) fL MCH 20.8 L (25.0-34.0) pg MCHC 30.3 L (32.0-36.0) g/dL RDW Std Deviation 52.5 H (36.4-46.3) fL RDW Coeff of Kendal 21.9 H (11.5-14.5) % Plt Count (130-400) K/uL [place] # (Auto) 0.74 H (0.11-0.59) K/uL BUN/Creatinine Ratio 20.5 H (10-20) Glucose 102 H (70-99(Fasting)) mg/dl Calcium 8.4 L (8.6-10.3) mg/dl Iron (35-150) mcg/dl Unsaturated IBC (155-355) mcg/dl Ferritin (8-388) ng/ml ALT 4 L (7-52) U/L Alkaline Phosphatase 105 H (34-104) U/L Troponin I High Sens 15.1 H (0-14) pg/ml B-Natriuretic Peptide (0-100) pg/ml Crossmatch 12/13/23 Range/Units 12:54 RBC (4.20-5.40) M/uL Hgb 7.5 L (12.0-16.0) g/dl Hct 23.7 L (37.0-47.0) % MCV (80.0-100.0) fL MCH (25.0-34.0) pg MCHC (32.0-36.0) g/dL RDW Std Deviation (36.4-46.3) fL RDW Coeff of Kendal (11.5-14.5) % Plt Count (130-400) K/uL [place] # (Auto) (0.11-0.59) K/uL BUN/Creatinine Ratio (10-20) Glucose (70-99(Fasting)) mg/dl Calcium (8.6-10.3) mg/dl Iron (35-150) mcg/dl Unsaturated IBC (155-355) mcg/dl Ferritin (8-388) ng/ml ALT (7-52) U/L Alkaline Phosphatase (34-104) U/L Troponin I High Sens (0-14) pg/ml B-Natriuretic Peptide (0-100) pg/ml Crossmatch (2) Pulmonary embolism Acute cor pulmonale presence: unspecified Chronicity: unspecified Pulmonary embolism type: unspecified Qualified Code(s): I26.99 - Other pulmonary embolism without acute cor pulmonale
[2023-12-13] MEDS: IRON SUCROSE 200 MG in 0.9 % SODIUM CHLORIDE 100 ML IV ONE (14:27)
--- NOTE | 2023-12-13 14:27 | Cardiology Consultation ---
Date of Consultation December 13, 2023 Assessment & Plan (1) Symptomatic anemia: (2) Pulmonary embolism: (3) Iron deficiency anemia: (4) Hypertension: (5) Diastolic congestive heart failure: (6) LVH (left ventricular hypertrophy): (7) Suspected sleep apnea: Plan Left lower extremity DVT and extensive bilateral pulmonary emboli Symptomatic anemia, hemoglobin 5.6 g/dL, with hypochromic microcytic indices, marked iron deficiency, without prior endoscopy Moderate to large hiatal hernia Intermittent bright red blood per rectum Chronic intermittent NSAID Hypertension, hypertensive heart disease Diastolic congestive heart failure, with mild decompensation Suspected sleep apnea Atherosclerotic calcifications of the coronary arteries, thoracic aorta, and abdominal aorta Dyslipidemia Right heart suboptimally visualized on echocardiography, Mildly dilated on limited visualization, with normal systolic function. Overall echo findings appear to reflect longstanding hypertension, obesity with possible underlying obstructive sleep apnea/hypoxemia, aging Consider GI consultation, consideration for flaherty-endoscopy Agree with PPI Discontinue and avoid NSAIDs hereinafter Given all the above, recommend holding off on adding aspirin 81 mg/day for the atherosclerosis Discontinue fish oils given need for anticoagulation Check lipids. Discontinue red yeast rice, initiate statin therapy. Outpatient evaluation for suspected sleep apnea Supervising Physician Co-Signing Physician Notes Attending attestation: Case reviewed with the advanced practitioner. I have personally performed a history and physical examination on the patient. I have reviewed the advanced practitioner's documentation on the date of service referenced in note, and I agree with, and take responsibility for the plan of care. Patient not volume overloaded on exam. Minimal edema. Multiple blood pressure readings suggest hypertension, as to the findings on the echocardiogram such as grade 2 diastolic dysfunction. Most recent blood pressure however is improved at 119/60. For now, would avoid diuretic therapy or being too aggressive with antihypertensive therapy in the setting of pulmonary embolism and ongoing DVT, anemia. Future considerations include adding low-dose carvedilol for blood pressure, cardioprotective effects, and addition of low-dose spironolactone (12.5 mg/day), concurrent discontinuation of potassium chloride (10 mEq/day) Harvinder Perez DO History of Present Illness Reason for Consultation: Leg edema. G2DD on Echo. Admitted for PE/anemia Requesting Physician: Dr. Kelin Dawkins MD Attending Physician: Kelin Dawkins MD History of Present Illness Ngoc Banuelos is a very pleasant 83-year-old female who was in her usual state of health until mid October when she began to experience sporadic shortness of breath that progressively got worse. On December 12, 2023 the patient presented to the [facility] ER (walk-in) due dyspnea and progressive weakness. Oxygen saturation was in the 80s. Imaging of the chest revealed fairly extensive bilateral pulmonary emboli, a moderate to large hiatal hernia, atherosclerotic calcifications of the thoracic aorta and epicardial coronary arteries, scattered hepatic cysts, and an exophytic left renal cyst measuring up to 1.6 cm. Venous duplex revealed deep venous thrombus in the left calf within the peroneal veins. Small bilateral ovarian cysts noted on the CT scan of the abdomen and pelvis. Hemoglobin was 5.6 g/dL with microcytic hypochromic indices. Two units of packed red blood cells were transfused in the ED. FOBT was negative. Patient prescribed IV heparin which she seems to be tolerating thus far. Resting echocardiography (summarized below) led to cardiology consultation. EKG without acute change, revealing sinus rhythm at 76 bpm with voltage criteria for LVH. Continuous telemetry monitoring revealed sinus rhythm throughout, heart rates predominantly in the 80s. Troponin only minimally elevated -> 14.2 -> 18.4-> 15.1 pg/mL. Patient denies prior cardiac history. She denies history of hypertension, dyslipidemia, CAD, MO, CHF, arrhythmia, heart murmur, rheumatic fever, or scarlet fever. Hematology consultation has been completed, documentation pending. 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 Father of renal failure attributed to ibuprofen following hip replacement. Maternal grandmother with an unknown cancer. Brother with liver cancer. Another brother without cardiac issue. 1 sister without cardiac issues. Sisters daughter with lung cancer at the age of 42 Social History: Never smoker. Never smokeless tobacco user. No alcohol. No illegal/illicit drug use. 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 15-year-old daughter drowned. Two sons, Rayray and Katina. Son Brady is an RN at [facility]. Allergies Allergy/AdvReac Type Severity Reaction Status Date / Time codeine Allergy Unknown CAN'T Verified 12/12/23 15:53 REMEMBER erythromycin base Allergy Unknown CAN'T Verified 12/12/23 15:53 REMEMBER Home Medications Medication Instructions Recorded Confirmed Type glucosamine-chondroitin 250 mg-200 1 tab PO DAILY 10/10/18 12/12/23 History mg tablet (Osteo Bi-Flex) hydrochlorothiazide 50 mg tablet 50 mg PO DAILY 10/10/18 12/12/23 History omega 9-jhf-sxd-fish oil 1,000 mg 1 cap PO DAILY 10/10/18 12/12/23 History (120 mg-180 mg) capsule (Fish Oil) potassium chloride 10 mEq 10 meq PO DAILY 10/10/18 12/12/23 History tablet,extended release(part/cryst) primidone 250 mg tablet 250 mg PO BID 10/10/18 12/12/23 History red yeast rice 600 mg capsule 600 mg PO DAILY 10/10/18 12/12/23 History apple cider vinegar 500 mg tablet 500 mg PO DAILY 12/12/23 12/12/23 History loratadine 10 mg tablet (Claritin) 10 mg PO DAILY 12/12/23 12/12/23 History Patient History Medical History Arthritis Family History Other Family history non-contributory Social History Smoking Status: Never smoker Hx Alcohol Use: No Hx Substance Use: No Preferred Language: Mongolian Communication Ability: Effective Manager Training Required: No Beliefs That Will Affect Care: None Current Living Situation: Alone Other Information That Helps Us Care for You: No Feels Safe at Home: Yes Safety Concerns: Feels Safe At This Time Assistive Devices: Cane, Glasses and Walker Review of Systems Review of Systems: Complete Review of Systems: Constitutional: No fevers, chills, or night sweats. HEENT: Glasses. Cataract status postextraction. Preglaucoma. No macular degeneration. No history of amaurosis fugax. + Bilateral hearing aids Mouth: Full upper plate, partial lower. Pulmonary: No history of asthma, emphysema, COPD, or sleep apnea. Cardiac: See above. GI/Abd: Intermittent bright red blood per rectum attributed to hemorrhoidal bleeding. Irregular bowel movements, at times "small pellets." No prior endoscopy. No dysphagia. No GERD. No kidney problems. No liver problems. No history of pancreatic issues. Vascular: No history of carotid artery disease, AAA, or lower extremity claudication/PAD. Hematologic: No coagulation disorder, anemia, or abnormal bleeding. Musculoskeletal: Arthritis. Knee pain, as needed Aleve. Skin: No rash. Neurologic: Lifelong seizure disorder. No history of TIA/CVA. Female : History of breast reduction, hysterectomy. Endocrine: Denies thyroid difficulty. Denies diabetes. Complete Review of Systems is as stated above, negative, or noncontributory Physical Exam Physical Exam: General: A&Ox3. NAD. HENT: Normocephalic. Atraumatic. Eyes: PER. Conjunctiva pink, sclera clear. Neck: No carotid bruits. No JVD. No HJR. Heart: RRR, 84 bpm. Grade II/ systolic murmur. No diastolic murmur. No rub. Lungs: Diminished. Left basilar rhonchi. No wheeze. Abdomen: +BS. Soft. Nontender. No masses or organomegaly. Extremities: 1+ Pretibial edema. No clubbing. No cyanosis. Limited neurological examination is without focal deficits. Pulses: radial=2/4, posterior tibial=1/4. Results & Data Vital Signs (Past 12 Hours) Vital Signs Temp Pulse Pulse Resp BP BP Pulse Ox 12/13/23 12:41 36.7 C 78 19 151/79 H 94 12/13/23 11:02 76 20 135/58 L 94 12/13/23 07:52 71 12/13/23 07:42 72 20 176/91 H 95 12/13/23 06:28 73 119/61 96 12/13/23 04:15 74 119/61 94 O2 Del Method O2 Flow Rate 12/13/23 12:41 Nasal Cannula 2 12/13/23 11:02 Nasal Cannula 2 12/13/23 07:52 12/13/23 07:42 Nasal Cannula 2 12/13/23 06:28 Nasal Cannula 2 12/13/23 04:15 Nasal Cannula 2 Laboratory Results Cardiac Enzymes 12/12/23 12/12/23 12/13/23 Range/Units 13:55 19:15 07:52 AST 16 16 (13-39) U/L Troponin I High Sens 14.2 H 18.4 H D 15.1 H (0-14) pg/ml B-Natriuretic Peptide 200 H (0-100) pg/ml Coagulation 12/12/23 Range/Units 13:55 PT 11.1 (9.0-12.0) Seconds APTT 24 (21-31) Seconds B-Natriuretic Peptide 200 H (0-100) pg/ml CBC 12/12/23 12/13/23 12/13/23 Range/Units 13:55 01:35 07:44 WBC 6.13 6.54 (4.8-10.8) K/ul RBC 3.08 L 3.55 L (4.20-5.40) M/uL Hgb 5.6 L* 7.5 L 7.4 L (12.0-16.0) g/dl Hct 19.8 L* 24.5 L 24.4 L (37.0-47.0) % Plt Count 413 H 348 (130-400) K/uL Neut # (Auto) 3.29 3.73 (1.40-6.50) K/uL Lymph # (Auto) 1.96 1.76 (1.20-3.40) K/uL [place] # (Auto) 0.63 H 0.74 H (0.11-0.59) K/uL Eos # (Auto) 0.21 0.29 (0.00-0.50) K/uL Baso # (Auto) 0.02 0.01 (0.00-0.20) K/uL 12/13/23 Range/Units 12:54 WBC (4.8-10.8) K/ul RBC (4.20-5.40) M/uL Hgb 7.5 L (12.0-16.0) g/dl Hct 23.7 L (37.0-47.0) % Plt Count (130-400) K/uL Neut # (Auto) (1.40-6.50) K/uL Lymph # (Auto) (1.20-3.40) K/uL [place] # (Auto) (0.11-0.59) K/uL Eos # (Auto) (0.00-0.50) K/uL Baso # (Auto) (0.00-0.20) K/uL Comprehensive Metabolic Panel 12/12/23 12/13/23 Range/Units 13:55 07:52 Sodium 137 139 (136-145) mmol/L Potassium 3.9 3.7 (3.5-5.1) mmol/L Chloride 102 105 (98-107) mmol/L Carbon Dioxide 26 25 (21-32) mmol/L BUN 20 18 (6-23) mg/dl Creatinine 0.94 0.88 (0.6-1.2) mg/dl Glucose 97 102 H (70-99(Fasting)) mg/dl Calcium 8.8 8.4 L (8.6-10.3) mg/dl AST 16 16 (13-39) U/L ALT 8 4 L (7-52) U/L Alkaline Phosphatase 126 H 105 H (34-104) U/L Total Protein 7.1 6.4 (6.0-8.3) gm/dl Albumin 4.1 3.7 (3.4-5.0) gm/dl Intake and Output 12/12/23 12/13/23 12/13/23 22:59 06:59 14:59 Intake Total 272 / 706.933 434.933 / 706.933 97.067 / 97.067 Balance 272 / 706.933 434.933 / 706.933 97.067 / 97.067 Intake: IV 106.933 / 106.933 97.067 / 97.067 Heparin Sodium/Dextrose 25,000 106.933 / 106.933 97.067 / 97.067 units In 500 ml @ 800 UNITS/HR 16 mls/hr IV .Q24H [facility] Rx#: [id number] Intake (Blood Product) Amt 272 / 550 278 / 550 Packed Cells, Leukoreduced 272 / 272 Unit [id number] Packed Cells, Leukoreduced 2 0 / 278 278 / 278 Unit [id number] Other 50 / 50 Packed Cells, Leukoreduced 2 50 / 50 Unit [id number] Diagnostic Findings December 12, 2023 EKG: Normal sinus rhythm at 76 bpm, with voltage criteria for LVH. December 13, 2023 TTE Interpretation Summary ([facility], Dr. Perez): The RV is suboptimally visualized but appears mildly dilated on limited visualization, with normal systolic function. Moderate concentric LVH. Normal LV wall motion. Normal LV systolic function. LVEF 55 to 60%. Mild aortic valve sclerosis without significant stenosis. Mild mitral regurgitation. Grade 2 diastolic dysfunction. (2) Pulmonary embolism Acute cor pulmonale presence: unspecified Chronicity: unspecified Pulmonary embolism type: unspecified Qualified Code(s): I26.99 - Other pulmonary embolism without acute cor pulmonale
[2023-12-13 16:45] LABS: Appearance Urine Cloudy (Clear); Bacteria Urine Automated 4+ (None Seen); Bilirubin Urine Negative (Negative); Blood Urine Negative (Negative); Cast Urine Automated 0-2 /lpf (0-2); Color Urine Yellow; Epithelial Cell Urine Auto 0-2 /hpf (0-2); Glucose Urine UA Negative (Negative); Ketones Urine Negative (Negative); Leukocyte Esterase Urine 1+ (Negative); Nitrite Urine Positive (Negative); Protein Urine Negative (Negative); RBC Urine Automated 0-2 /hpf (0-2); Specific Gravity Urine 1.017 (1.000-1.030); Urobilinogen Urine Negative (Negative); WBC Urine Automated 0-5 /hpf (0-5)
[2023-12-14 06:47] LABS: Hematocrit (blood only) 23.1 % (37.0-47.0); Mean Corpuscular Hemoglobin 20.8 pg (25.0-34.0); Mean Corpuscular Hgb Conc 30.3 g/dL (32.0-36.0); Mean Corpuscular Volume 68.5 fL (80.0-100.0); Mean Platelet Volume 10.4 fL (9.4-12.4); Nucleated RBC # (auto) 0.07 K/uL (0.00-0.12); Nucleated RBC % (auto) 1.1 %; Platelet Count 343 K/uL (130-400); RDW Coefficient of Variation 22.7 % (11.5-14.5); RDW Standard Deviation 53.9 fL (36.4-46.3); Red Blood Count 3.37 M/uL (4.20-5.40)
[2023-12-14 06:58] LABS: Albumin Globulin Ratio 1.3 (0.9-2); Albumin Level 3.4 gm/dl (3.4-5.0); BUN Creatinine Ratio 21.3 (10-20); Bilirubin,Total 0.2 mg/dl (0.2-1.0); Calcium 8.2 mg/dl (8.6-10.3); Creatinine Clr Calc Pharmacy 46.7 ml/min; Est GFR (African American) 64.6 ml/min; Est GFR (Non-African American) 55.7 ml/min; Globulin 2.6 gm/dl (2.5-4.0); Potassium 3.7 mmol/L (3.5-5.1)
[2023-12-14 07:04] LABS: ANTI-Xa, UFH(UnfractionatedHep 0.64 IU/ml (0.3-0.7)
[2023-12-14 08:15] LABS: Chol HDL Ratio 2.3 (0-5)
[2023-12-14 12:31] LABS: Hemoglobin 7.8 g/dl (12.0-16.0); Mean Corpuscular Volume 70.1 fL (80.0-100.0); Mean Platelet Volume 10.3 fL (9.4-12.4); Nucleated RBC % (auto) 1.2 %; Platelet Count 380 K/uL (130-400); RDW Standard Deviation 55.3 fL (36.4-46.3); Red Blood Count 3.71 M/uL (4.20-5.40); White Blood Count 8.06 K/ul (4.8-10.8)
--- NOTE | 2023-12-14 13:11 | Hospitalist Progress Note ---
Date of Service December 14, 2023 Assessment & Plan (1) Weakness: (2) Pulmonary embolism: (3) Symptomatic anemia: (4) Acute hypoxic respiratory failure: Plan 83 year old womn with PMHx significant for HTN, seizure disorder, HLD who presents with progressive SOB over the last few weeks. Acute hypoxic respiratory Failure Pt with oxygen saturation in the 80s at times Due to bilateral PE and anemia Wean oxygen as tolerated Plan to get 2 step prior to dc Bilateral pulmonary emboli Left DVT Presented with progressive SOB CTA chest noting extensive bilateral pulmonary emboli Currently on hep gtt Doppler showed Left DVT in peroneal veins Hb remains stable Considering patient is on Primidone (for history of seizure) which is a CY inducer, Eliquis or Xarelto will not be ideal Will start warfarin (heparin-warfarin bridge) Monitor INR. If subtherapeutic at time of dc, will do lovenox bridge Advised to avoid NSAIDS Microcytic Anemia Iron deficiency anemia Pt presenting with progressive SOB Hgb of 5.6 on admission, last CBC per [facility] in October 2020 with hgb of 13.9 MCV in the 60s, Iron lvl <10, Ferritin 4.8ng/ml, TIBC 507 Denied any bleeding FOBT per ED provider negative Anemia work up show severe iron deficiency CT abd/pelvis with no obvious cause Got 2U of pRBCs in the ED Hb stable in 7s Patient declined getting colonoscopy/EGD Follow up heme outpatient Will get second dose of IV venofer today Elevated Trop Diastolic congestive heart failure with mild decompensation Trop mildly elevated at 14.2 Likely demand ischemia in setting of above Trend to peak BNP of 200 with cardiomegaly noted on chest XR, echo pending as above, r/o CHF TTE showed mod conc LVH, EF 55-60%, mild MR, Grade II diastolic dysfunction Cardiology evaluation and recs noted Recommend to discontinue red yeast and fish oils Plan to change from HCTZ to aldactone 12.5mg daily on dc Hiatal hernia Moderate to large, noted on imaging Seizure disorder Continue home primidone HTN Home HCTZ has been on hold Will change meds as above Diet: HH DVT prophylaxis: IV heparin I called son who is an RN here and updated him PT/OT pattial I spent a total of 50 minutes coordinating, documenting and providing care for this patient excluding time spent in performance of separately billed services Admission and Anticipated Discharge Date Admission Date: December 12, 2023 Subjective Patient seen and examined Sitting in chair eating lunch Reports fatigue, exertional dyspnea are improving Denied cough, chest pain Denied dizziness, nausea, vomiting, abd pain, diarrhea, constipation Denied any bleeding Physical Exam Constitutional: + well hydrated; no acute distress Eyes: PERRL, conjunctivae normal, anicteric sclerae ENMT: external ear and nose normal, oropharynx normal Respiratory: normal respiratory effort, lungs clear to auscultation Cardiovascular: Rate/Rhythm: regular rate and regular rhythm Gastrointestinal (Abdomen): normal bowel sounds, soft, nontender, no hepatosplenomegaly Musculoskeletal: +pedal edema Neurologic: PERRL, EOMI, accommodation nl, no face palsy, no dysarthria Psychiatric: A+Ox3, euthymic affect Results & Data Results & Data Vital Signs (Past 12 Hours) Vital Signs Temp Pulse Resp BP BP Pulse Ox Pulse Ox 12/14/23 12:51 98 12/14/23 10:42 36.7 C 80 17 118/70 95 12/14/23 07:38 36.4 C L 77 20 142/75 H 95 12/14/23 03:34 36.7 C 73 17 140/62 95 O2 Del Method O2 Flow Rate O2 Flow Rate 12/14/23 12:51 1 12/14/23 10:42 Room Air 12/14/23 07:38 Nasal Cannula 3 12/14/23 03:34 Room Air Laboratory Results Abnormal lab results 12/13/23 12/14/23 12/14/23 Range/Units 16:15 06:10 12:10 RBC 3.37 L 3.71 L (4.20-5.40) M/uL Hgb 7.0 L 7.8 L (12.0-16.0) g/dl Hct 23.1 L 26.0 L (37.0-47.0) % MCV 68.5 L 70.1 L (80.0-100.0) fL MCH 20.8 L 21.0 L (25.0-34.0) pg MCHC 30.3 L 30.0 L (32.0-36.0) g/dL RDW Std Deviation 53.9 H 55.3 H (36.4-46.3) fL RDW Coeff of Kendal 22.7 H 23.0 H (11.5-14.5) % BUN/Creatinine Ratio 21.3 H (10-20) Calcium 8.2 L (8.6-10.3) mg/dl ALT 6 L (7-52) U/L Urine Appearance Cloudy A (Clear) Urine Nitrite Positive A (Negative) Ur Leukocyte Esterase 1+ H (Negative) Urine Bacteria (Auto) 4+ H (None Seen) (2) Pulmonary embolism Acute cor pulmonale presence: unspecified Chronicity: unspecified Pulmonary embolism type: unspecified Qualified Code(s): I26.99 - Other pulmonary embolism without acute cor pulmonale
[2023-12-14] MEDS: WARFARIN SOD 10 MG TAB PO ONE (15:22)
[2023-12-14] MEDS: IRON SUCROSE 200 MG in 0.9 % SODIUM CHLORIDE 100 ML IV ONE (15:22)
[2023-12-14] MEDS ORDERED: APIXABAN 5 MG TABLET PO SCH (21:00)
--- NOTE | 2023-12-14 21:52 | Electrocardiogram Report ---
Test Reason : Blood Pressure : */* mmHG Vent. Rate : 76 BPM Atrial Rate : 76 BPM P-R Int : 160 ms QRS Dur : 96 ms QT Int : 400 ms P-R-T Axes : -12 -11 -15 degrees QTcB Int : 450 ms Normal sinus rhythm Minimal voltage criteria for LVH, may be normal variant ( R in aVL ) Borderline ECG When compared with ECG of 27-Oct-1995 17:23, T wave amplitude has increased in Anterior leads Confirmed by Angel Hamilton ([id number]) on 12/14/2023 9:52:04 PM Referred By: REFERRED SELF Confirmed By: Angel Hamilton
[2023-12-15 05:59] LABS: Hematocrit (blood only) 24.4 % (37.0-47.0); Hemoglobin 7.3 g/dl (12.0-16.0); Mean Corpuscular Hemoglobin 21.2 pg (25.0-34.0); Mean Corpuscular Hgb Conc 29.9 g/dL (32.0-36.0); Mean Corpuscular Volume 70.9 fL (80.0-100.0); Mean Platelet Volume 10.4 fL (9.4-12.4); Nucleated RBC # (auto) 0.07 K/uL (0.00-0.12); Nucleated RBC % (auto) 0.9 %; Platelet Count 354 K/uL (130-400); RDW Coefficient of Variation 24.1 % (11.5-14.5); RDW Standard Deviation 58.4 fL (36.4-46.3); Red Blood Count 3.44 M/uL (4.20-5.40)
[2023-12-15 06:18] LABS: Albumin Globulin Ratio 1.3 (0.9-2); Albumin Level 3.4 gm/dl (3.4-5.0); BUN Creatinine Ratio 25.3 (10-20); Bilirubin,Total 0.2 mg/dl (0.2-1.0); Calcium 8.4 mg/dl (8.6-10.3); Creatinine Clr Calc Pharmacy 55.6 ml/min; Est GFR (African American) 79.7 ml/min; Est GFR (Non-African American) 68.7 ml/min; Globulin 2.7 gm/dl (2.5-4.0); Potassium 3.6 mmol/L (3.5-5.1); Total Protein 6.1 gm/dl (6.0-8.3)
[2023-12-15 06:31] LABS: INR 1.1 (0.9-1.1); Prothrombin Time 12.2 Seconds (9.0-12.0)
[2023-12-15] MEDS: ACETAMINOPHEN 500 MG TAB PO PRN (09:22)
--- NOTE | 2023-12-15 12:03 | Hospitalist Progress Note ---
Date of Service December 15, 2023 Assessment & Plan (1) Weakness: (2) Pulmonary embolism: (3) Symptomatic anemia: (4) Acute hypoxic respiratory failure: Plan 83 year old womn with PMHx significant for HTN, seizure disorder, HLD who presents with progressive SOB over the last few weeks. Acute hypoxic respiratory Failure Pt with oxygen saturation in the 80s at times Due to bilateral PE and anemia Wean oxygen as tolerated Plan to get 2 step prior to dc Bilateral pulmonary emboli Left DVT Presented with progressive SOB CTA chest noting extensive bilateral pulmonary emboli Currently on hep gtt Doppler showed Left DVT in peroneal veins Hb remains stable Considering patient is on Primidone (for history of seizure) which is a CY inducer, Eliquis or Xarelto will not be ideal Was started on warfarin (heparin-warfarin bridge) Monitor INR daily. If subtherapeutic at time of dc, will do lovenox bridge Avoid NSAIDS Microcytic Anemia Iron deficiency anemia Pt presenting with progressive SOB Hgb of 5.6 on admission, last CBC per [facility] in October 2020 with hgb of 13.9 MCV in the 60s, Iron lvl <10, Ferritin 4.8ng/ml, TIBC 507 Denied any bleeding FOBT per ED provider negative Anemia work up show severe iron deficiency CT abd/pelvis with no obvious cause Got 2U of pRBCs in the ED Hb stable in 7s Patient declined getting colonoscopy/EGD Follow up heme outpatient Got IV venofer x 2 doses Elevated Trop Diastolic congestive heart failure with mild decompensation Trop mildly elevated at 14.2 Likely demand ischemia in setting of above Trend to peak BNP of 200 with cardiomegaly noted on chest XR, echo pending as above, r/o CHF TTE showed mod conc LVH, EF 55-60%, mild MR, Grade II diastolic dysfunction Cardiology evaluation and recs noted Recommend to discontinue red yeast and fish oils Start aldactone 12.5mg daily Hiatal hernia Moderate to large, noted on imaging Seizure disorder Continue home primidone HTN Home HCTZ has been on hold Started on aldactone 12.5mg daily Diet: HH DVT prophylaxis: IV heparin - warfarin OT eval noted Awaiting PT eval I spent a total of 40 minutes coordinating, documenting and providing care for this patient excluding time spent in performance of separately billed services Admission and Anticipated Discharge Date Admission Date: December 12, 2023 Subjective Patient seen and examined Reports SOB with exertion. None at rest Reports pain behind right knee on waking up Reports mild dry cough this AM Denied chest pain Denied dizziness, nausea, vomiting, abd pain, diarrhea, constipation Denied any bleeding Physical Exam Constitutional: + well hydrated; no acute distress Eyes: PERRL, conjunctivae normal, anicteric sclerae ENMT: external ear and nose normal, oropharynx normal Respiratory: normal respiratory effort, lungs clear to auscultation Cardiovascular: Rate/Rhythm: regular rate and regular rhythm Gastrointestinal (Abdomen): normal bowel sounds, soft, nontender, no hepatosplenomegaly Musculoskeletal: +pedal edema No bruise noted Neurologic: PERRL, EOMI, accommodation nl, no face palsy, no dysarthria Psychiatric: A+Ox3, euthymic affect Results & Data Results & Data Vital Signs (Past 12 Hours) Vital Signs Temp Pulse Pulse Resp BP BP Pulse Ox 12/15/23 10:41 36.6 C 63 19 114/70 98 12/15/23 08:17 36.5 C 72 19 120/70 96 12/15/23 08:00 12/15/23 07:26 68 12/15/23 04:00 36.8 C 75 17 142/63 H 96 O2 Del Method O2 Flow Rate 12/15/23 10:41 Nasal Cannula 12/15/23 08:17 Nasal Cannula 12/15/23 08:00 Nasal Cannula 2 12/15/23 07:26 12/15/23 04:00 Nasal Cannula 2 Laboratory Results Abnormal lab results 12/14/23 12/15/23 Range/Units 12:10 05:27 RBC 3.71 L 3.44 L (4.20-5.40) M/uL Hgb 7.8 L 7.3 L (12.0-16.0) g/dl Hct 26.0 L 24.4 L (37.0-47.0) % MCV 70.1 L 70.9 L (80.0-100.0) fL MCH 21.0 L 21.2 L (25.0-34.0) pg MCHC 30.0 L 29.9 L (32.0-36.0) g/dL RDW Std Deviation 55.3 H 58.4 H (36.4-46.3) fL RDW Coeff of Kendal 23.0 H 24.1 H (11.5-14.5) % PT 12.2 H (9.0-12.0) Seconds BUN/Creatinine Ratio 25.3 H (10-20) Calcium 8.4 L (8.6-10.3) mg/dl ALT 6 L (7-52) U/L (2) Pulmonary embolism Acute cor pulmonale presence: unspecified Chronicity: unspecified Pulmonary embolism type: unspecified Qualified Code(s): I26.99 - Other pulmonary embolism without acute cor pulmonale
[2023-12-15] MEDS: SPIRONOLACTONE 12.5 MG TAB PO SCH (12:56)
[2023-12-15] MEDS: LIDOCAINE 5% 1 PATCH TD SCH (12:56)
[2023-12-15] MEDS: WARFARIN SOD 5 MG TAB PO SCH (17:14)
[2023-12-16 06:43] LABS: Hematocrit (blood only) 24.9 % (37.0-47.0); Hemoglobin 7.5 g/dl (12.0-16.0); Mean Corpuscular Hemoglobin 21.8 pg (25.0-34.0); Mean Corpuscular Hgb Conc 30.1 g/dL (32.0-36.0); Mean Corpuscular Volume 72.4 fL (80.0-100.0); Mean Platelet Volume 10.5 fL (9.4-12.4); Nucleated RBC # (auto) 0.06 K/uL (0.00-0.12); Nucleated RBC % (auto) 0.8 %; Platelet Count 387 K/uL (130-400); RDW Coefficient of Variation 25.2 % (11.5-14.5); RDW Standard Deviation 60.4 fL (36.4-46.3); Red Blood Count 3.44 M/uL (4.20-5.40); White Blood Count 7.34 K/ul (4.8-10.8)
[2023-12-16 07:00] LABS: BUN Creatinine Ratio 26.5 (10-20); Calcium 8.5 mg/dl (8.6-10.3); Est GFR (African American) 93.1 ml/min; Est GFR (Non-African American) 80.3 ml/min; Potassium 4.1 mmol/L (3.5-5.1)
[2023-12-16 07:15] LABS: INR 2.2 (0.9-1.1); Prothrombin Time 22.4 Seconds (9.0-12.0)
--- NOTE | 2023-12-16 09:46 | Hospitalist Progress Note ---
Date of Service December 16, 2023 Assessment & Plan (1) Weakness: (2) Pulmonary embolism: (3) Symptomatic anemia: (4) Acute hypoxic respiratory failure: Plan 83 year old womn with PMHx significant for HTN, seizure disorder, HLD who presents with progressive SOB over the last few weeks. Acute hypoxic respiratory Failure Pt with oxygen saturation in the 80s at times Due to bilateral PE and anemia Wean oxygen as tolerated Plan to get 2 step prior to dc Bilateral pulmonary emboli Left DVT Presented with progressive SOB CTA chest noting extensive bilateral pulmonary emboli Currently on hep gtt Doppler showed Left DVT in peroneal veins Hb remains stable Considering patient is on Primidone (for history of seizure) which is a CY inducer, Eliquis or Xarelto will not be ideal Was started on warfarin INR is 2.2. Heparin stopped. Monitor INR. May need further adjustment of warfarin dose considering rapid rise in INR. Avoid NSAIDS Microcytic Anemia Iron deficiency anemia Pt presenting with progressive SOB Hgb of 5.6 on admission, last CBC per [facility] in October 2020 with hgb of 13.9 MCV in the 60s, Iron lvl <10, Ferritin 4.8ng/ml, TIBC 507 Denied any bleeding FOBT per ED provider negative Anemia work up show severe iron deficiency CT abd/pelvis with no obvious cause Got 2U of pRBCs in the ED Hb stable in 7s Patient declined getting colonoscopy/EGD Follow up heme outpatient Got IV venofer x 2 doses Plan to start po iron on dc Elevated Trop Diastolic congestive heart failure with mild decompensation Trop mildly elevated at 14.2 Likely demand ischemia in setting of above Trend to peak BNP of 200 with cardiomegaly noted on chest XR, echo pending as above, r/o CHF TTE showed mod conc LVH, EF 55-60%, mild MR, Grade II diastolic dysfunction Cardiology evaluation and recs noted Recommend to discontinue red yeast and fish oils Started aldactone 12.5mg daily Hiatal hernia Moderate to large, noted on imaging Seizure disorder Continue home primidone HTN Home HCTZ has been on hold Started on aldactone 12.5mg daily Diet: HH DVT prophylaxis: IV heparin - warfarin PT/OT eval noted Rehab recommended. I agree with this considering reduced functional status, need for close initial monitoring of anemia/bleeding risk with starting anticoagulants Discussed with patient. She is agreeable to rehab I called and updated son CM notified to start working on placement I spent a total of 50 minutes coordinating, documenting and providing care for this patient excluding time spent in performance of separately billed services Admission and Anticipated Discharge Date Admission Date: December 12, 2023 Subjective Patient seen and examined Reports SOB with exertion. None at rest Reports pain behind right knee is almost resolved Denied chest pain, cough Denied dizziness, nausea, vomiting, abd pain, diarrhea, constipation Denied any bleeding Physical Exam Constitutional: + well hydrated; no acute distress Eyes: PERRL, conjunctivae normal, anicteric sclerae ENMT: external ear and nose normal, oropharynx normal Respiratory: normal respiratory effort, lungs clear to auscultation Cardiovascular: Rate/Rhythm: regular rate and regular rhythm Gastrointestinal (Abdomen): normal bowel sounds, soft, nontender, no hepatosplenomegaly Musculoskeletal: +pedal edema Neurologic: PERRL, EOMI, accommodation nl, no face palsy, no dysarthria Psychiatric: A+Ox3, euthymic affect Results & Data Results & Data Vital Signs (Past 12 Hours) Vital Signs Temp Pulse Pulse Resp BP Pulse Ox O2 Del Method 12/16/23 08:36 36.7 C 66 18 162/82 H 99 Nasal Cannula 12/16/23 03:09 36.7 C 69 18 129/75 96 Nasal Cannula 12/15/23 23:01 36.8 C 71 18 109/55 L 96 Nasal Cannula 12/15/23 22:00 69 O2 Flow Rate 12/16/23 08:36 2 12/16/23 03:09 2 12/15/23 23:01 2 12/15/23 22:00 Laboratory Results Abnormal lab results 12/16/23 12/16/23 Range/Units 06:08 08:00 RBC 3.44 L (4.20-5.40) M/uL Hgb 7.5 L (12.0-16.0) g/dl Hct 24.9 L (37.0-47.0) % MCV 72.4 L (80.0-100.0) fL MCH 21.8 L (25.0-34.0) pg MCHC 30.1 L (32.0-36.0) g/dL RDW Std Deviation 60.4 H (36.4-46.3) fL RDW Coeff of Kendal 25.2 H (11.5-14.5) % PT 22.4 H (9.0-12.0) Seconds INR 2.2 H (0.9-1.1) BUN/Creatinine Ratio 26.5 H (10-20) POC Glucose 101 H (70-99) mg/dl Calcium 8.5 L (8.6-10.3) mg/dl (2) Pulmonary embolism Acute cor pulmonale presence: unspecified Chronicity: unspecified Pulmonary embolism type: unspecified Qualified Code(s): I26.99 - Other pulmonary embolism without acute cor pulmonale
[2023-12-17 06:41] LABS: Hematocrit (blood only) 27.9 % (37.0-47.0); Hemoglobin 8.1 g/dl (12.0-16.0); Mean Corpuscular Hemoglobin 21.5 pg (25.0-34.0); Mean Corpuscular Volume 74.2 fL (80.0-100.0); Mean Platelet Volume 9.8 fL (9.4-12.4); Nucleated RBC # (auto) 0.03 K/uL (0.00-0.12); Nucleated RBC % (auto) 0.4 %; Platelet Count 397 K/uL (130-400); RDW Coefficient of Variation 26.5 % (11.5-14.5); RDW Standard Deviation 63.2 fL (36.4-46.3); Red Blood Count 3.76 M/uL (4.20-5.40); White Blood Count 6.78 K/ul (4.8-10.8)
[2023-12-17 07:07] LABS: BUN Creatinine Ratio 22.5 (10-20); Calcium 8.8 mg/dl (8.6-10.3); Creatinine Clr Calc Pharmacy 62.4 ml/min; Est GFR (African American) 90.7 ml/min; Est GFR (Non-African American) 78.2 ml/min; Potassium 4.2 mmol/L (3.5-5.1)
[2023-12-17 07:13] LABS: INR 4.6 (0.9-1.1)
--- NOTE | 2023-12-17 10:42 | Hospitalist Progress Note ---
Date of Service December 17, 2023 Assessment & Plan (1) Weakness: (2) Pulmonary embolism: (3) Symptomatic anemia: (4) Acute hypoxic respiratory failure: Plan 83 year old womn with PMHx significant for HTN, seizure disorder, HLD who presents with progressive SOB over the last few weeks. Acute hypoxic respiratory Failure Pt with oxygen saturation in the 80s at times Due to bilateral PE and anemia Wean oxygen as tolerated Plan to get 2 step prior to dc Bilateral pulmonary emboli Left DVT Presented with progressive SOB CTA chest noting extensive bilateral pulmonary emboli Currently on hep gtt Doppler showed Left DVT in peroneal veins Hb remains stable Considering patient is on Primidone (for history of seizure) which is a CY inducer, Eliquis or Xarelto will not be ideal Was started on warfarin INR is 4.6. Hold warfarin for now and monitor daily INR Avoid NSAIDS Microcytic Anemia Iron deficiency anemia Pt presenting with progressive SOB Hgb of 5.6 on admission, last CBC per [facility] in October 2020 with hgb of 13.9 MCV in the 60s, Iron lvl <10, Ferritin 4.8ng/ml, TIBC 507 Denied any bleeding FOBT per ED provider negative Anemia work up show severe iron deficiency CT abd/pelvis with no obvious cause Got 2U of pRBCs in the ED Hb stable. 8.1 this AM Patient declined getting colonoscopy/EGD Follow up heme outpatient Got IV venofer x 2 doses Plan to start po iron on dc Elevated Trop Diastolic congestive heart failure with mild decompensation Trop mildly elevated at 14.2 Likely demand ischemia in setting of above BNP of 200 with cardiomegaly noted on chest XR, echo pending as above, r/o CHF TTE showed mod conc LVH, EF 55-60%, mild MR, Grade II diastolic dysfunction Cardiology evaluation and recs noted Recommend to discontinue red yeast and fish oils Started aldactone 12.5mg daily Hiatal hernia Moderate to large, noted on imaging Seizure disorder Continue home primidone HTN Home HCTZ has been on hold Started on aldactone 12.5mg daily Diet: HH DVT prophylaxis: IV heparin - warfarin PT/OT eval noted Rehab recommended. CM working on rehab I spent a total of 35 minutes coordinating, documenting and providing care for this patient excluding time spent in performance of separately billed services Admission and Anticipated Discharge Date Admission Date: December 12, 2023 Subjective Patient seen and examined Reported she had some pain behind her right knee that improved with lidocaine patch Denied any chest pain, SOB at rest. Has not moved today to assess exertional dyspnea Off oxygen Denied any melena, hematochezia, hemoptysis Reports mild dry cough Denied any other complaints Physical Exam Constitutional: + well hydrated; no acute distress Eyes: PERRL, conjunctivae normal, anicteric sclerae ENMT: external ear and nose normal, oropharynx normal Respiratory: normal respiratory effort, lungs clear to auscultation Cardiovascular: Rate/Rhythm: regular rate and regular rhythm Gastrointestinal (Abdomen): normal bowel sounds, soft, nontender, no hepatosplenomegaly Musculoskeletal: +trace pedal edema Neurologic: PERRL, EOMI, accommodation nl, no face palsy, no dysarthria Psychiatric: A+Ox3, euthymic affect Results & Data Results & Data Vital Signs (Past 12 Hours) Vital Signs Temp Pulse Pulse Resp BP BP Pulse Ox 12/17/23 08:00 12/17/23 07:54 36.4 C L 69 19 148/75 H 92 12/17/23 07:15 65 12/17/23 02:52 36.3 C L 72 16 141/79 H 96 12/16/23 23:31 36.5 C 75 15 137/67 92 O2 Del Method 12/17/23 08:00 Room Air 12/17/23 07:54 Room Air 12/17/23 07:15 12/17/23 02:52 Room Air 12/16/23 23:31 Room Air Laboratory Results Abnormal lab results 12/16/23 12/17/23 Range/Units 12:17 06:04 RBC 3.76 L (4.20-5.40) M/uL Hgb 8.1 L (12.0-16.0) g/dl Hct 27.9 L (37.0-47.0) % MCV 74.2 L (80.0-100.0) fL MCH 21.5 L (25.0-34.0) pg MCHC 29.0 L (32.0-36.0) g/dL RDW Std Deviation 63.2 H (36.4-46.3) fL RDW Coeff of Kendal 26.5 H (11.5-14.5) % PT 44.0 H (9.0-12.0) Seconds INR 4.6 H (0.9-1.1) BUN/Creatinine Ratio 22.5 H (10-20) POC Glucose 110 H (70-99) mg/dl (2) Pulmonary embolism Acute cor pulmonale presence: unspecified Chronicity: unspecified Pulmonary embolism type: unspecified Qualified Code(s): I26.99 - Other pulmonary embolism without acute cor pulmonale
[2023-12-18 05:24] LABS: Hematocrit (blood only) 27.2 % (37.0-47.0); Mean Corpuscular Hemoglobin 21.9 pg (25.0-34.0); Mean Corpuscular Hgb Conc 29.4 g/dL (32.0-36.0); Mean Corpuscular Volume 74.3 fL (80.0-100.0); Nucleated RBC # (auto) 0.02 K/uL (0.00-0.12); Nucleated RBC % (auto) 0.3 %; Platelet Count 392 K/uL (130-400); RDW Coefficient of Variation 28.1 % (11.5-14.5); RDW Standard Deviation 63.3 fL (36.4-46.3); Red Blood Count 3.66 M/uL (4.20-5.40); White Blood Count 7.06 K/ul (4.8-10.8)
[2023-12-18 05:36] LABS: BUN Creatinine Ratio 26.7 (10-20); Calcium 8.6 mg/dl (8.6-10.3); Creatinine Clr Calc Pharmacy 49.3 ml/min; Est GFR (African American) 68.1 ml/min; Est GFR (Non-African American) 58.7 ml/min
[2023-12-18 05:47] LABS: INR 5.2 (0.9-1.1); Prothrombin Time 48.4 Seconds (9.0-12.0)
--- NOTE | 2023-12-18 12:46 | Hospitalist Progress Note ---
Date of Service December 18, 2023 Assessment & Plan (1) Weakness: (2) Pulmonary embolism: (3) Symptomatic anemia: (4) Acute hypoxic respiratory failure: Plan 83 year old womn with PMHx significant for HTN, seizure disorder, HLD who presents with progressive SOB over the last few weeks. Acute hypoxic respiratory Failure Pt with oxygen saturation in the 80s at times Due to bilateral PE and anemia Wean oxygen as tolerated Plan to get 2 step prior to dc Bilateral pulmonary emboli Left DVT Presented with progressive SOB CTA chest noting extensive bilateral pulmonary emboli Currently on hep gtt Doppler showed Left DVT in peroneal veins Hb remains stable Considering patient is on Primidone (for history of seizure) which is a CY inducer, Eliquis or Xarelto will not be ideal Was started on warfarin INR is 5.2. Continue to hold warfarin for now and monitor daily INR Avoid NSAIDS Microcytic Anemia Iron deficiency anemia Pt presenting with progressive SOB Hgb of 5.6 on admission, last CBC per [facility] in October 2020 with hgb of 13.9 MCV in the 60s, Iron lvl <10, Ferritin 4.8ng/ml, TIBC 507 Denied any bleeding FOBT per ED provider negative Anemia work up show severe iron deficiency CT abd/pelvis with no obvious cause Got 2U of pRBCs in the ED Hb stable. 8 this AM Patient declined getting colonoscopy/EGD Follow up heme outpatient Got IV venofer x 2 doses Plan to start po iron on dc Elevated Trop Diastolic congestive heart failure with mild decompensation Trop mildly elevated at 14.2 Likely demand ischemia in setting of above BNP of 200 with cardiomegaly noted on chest XR, echo pending as above, r/o CHF TTE showed mod conc LVH, EF 55-60%, mild MR, Grade II diastolic dysfunction Cardiology evaluation and recs noted Recommend to discontinue red yeast and fish oils Started aldactone 12.5mg daily Hiatal hernia Moderate to large, noted on imaging Seizure disorder Continue home primidone HTN Home HCTZ has been on hold Started on aldactone 12.5mg daily Diet: HH DVT prophylaxis: Warfarin PT/OT eval noted Rehab recommended. CM working on rehab I spent a total of 35 minutes coordinating, documenting and providing care for this patient excluding time spent in performance of separately billed services Admission and Anticipated Discharge Date Admission Date: December 12, 2023 Subjective Patient seen and examined Reports shortness of breath with exertion is improving Denied chest pain, cough Denied bleeding Denied any other complaints Physical Exam Constitutional: + well hydrated; no acute distress Eyes: PERRL, conjunctivae normal, anicteric sclerae ENMT: external ear and nose normal, oropharynx normal Respiratory: normal respiratory effort, lungs clear to auscultation Cardiovascular: Rate/Rhythm: regular rate and regular rhythm Gastrointestinal (Abdomen): normal bowel sounds, soft, nontender, no hepatosplenomegaly Musculoskeletal: +trace pedal edema Neurologic: PERRL, EOMI, accommodation nl, no face palsy, no dysarthria Psychiatric: A+Ox3, euthymic affect Results & Data Results & Data Vital Signs (Past 12 Hours) Vital Signs Temp Pulse Resp BP Pulse Ox O2 Del Method O2 Flow Rate 12/18/23 11:46 36.7 C 64 19 125/76 93 Room Air 12/18/23 08:30 36.7 C 69 20 133/76 92 Nasal Cannula 12/18/23 08:00 Room Air 12/18/23 04:00 72 93 Nasal Cannula 2 12/18/23 03:00 Nasal Cannula 2 12/18/23 03:00 36.8 C 72 17 123/71 89 L Nasal Cannula 2 Laboratory Results Abnormal lab results 12/18/23 Range/Units 04:18 RBC 3.66 L (4.20-5.40) M/uL Hgb 8.0 L (12.0-16.0) g/dl Hct 27.2 L (37.0-47.0) % MCV 74.3 L (80.0-100.0) fL MCH 21.9 L (25.0-34.0) pg MCHC 29.4 L (32.0-36.0) g/dL RDW Std Deviation 63.3 H (36.4-46.3) fL RDW Coeff of Kendal 28.1 H (11.5-14.5) % PT 48.4 H (9.0-12.0) Seconds INR 5.2 H (0.9-1.1) BUN 24 H (6-23) mg/dl BUN/Creatinine Ratio 26.7 H (10-20) (2) Pulmonary embolism Acute cor pulmonale presence: unspecified Chronicity: unspecified Pulmonary embolism type: unspecified Qualified Code(s): I26.99 - Other pulmonary embolism without acute cor pulmonale
[2023-12-18] MEDS ORDERED: POLYETHYLENE (MIRALAX) 17 GM PACK PO PRN (17:39)
[2023-12-18] MEDS: DOCUSATE SODIUM/SENNA 50/8.6MG TAB PO SCH (18:20)
[2023-12-19 06:21] LABS: Hematocrit (blood only) 26.8 % (37.0-47.0); Hemoglobin 7.9 g/dl (12.0-16.0); Mean Corpuscular Hemoglobin 21.9 pg (25.0-34.0); Mean Corpuscular Hgb Conc 29.5 g/dL (32.0-36.0); Mean Corpuscular Volume 74.4 fL (80.0-100.0); Mean Platelet Volume 9.5 fL (9.4-12.4); Platelet Count 346 K/uL (130-400); RDW Coefficient of Variation 29.3 % (11.5-14.5); RDW Standard Deviation 65.9 fL (36.4-46.3); White Blood Count 5.62 K/ul (4.8-10.8)
[2023-12-19 06:37] LABS: BUN Creatinine Ratio 29.1 (10-20); Calcium 8.5 mg/dl (8.6-10.3); Creatinine Clr Calc Pharmacy 51.8 ml/min; Est GFR (African American) 71.9 ml/min; Potassium 4.4 mmol/L (3.5-5.1)
[2023-12-19 06:42] LABS: INR 3.1 (0.9-1.1); Prothrombin Time 30.5 Seconds (9.0-12.0)
[2023-12-19] MEDS: cefTRIAXone SODIUM 2,000 MG/50 ML BAG IV SCH (09:39)
--- NOTE | 2023-12-19 12:17 | Hospitalist Progress Note ---
Date of Service December 19, 2023 Assessment & Plan (1) Weakness: (2) Pulmonary embolism: (3) Symptomatic anemia: (4) Acute hypoxic respiratory failure: Plan 83 year old womn with PMHx significant for HTN, seizure disorder, HLD who presents with progressive SOB over the last few weeks. Acute hypoxic respiratory Failure Pt with oxygen saturation in the 80s at times Due to bilateral PE and anemia Wean oxygen as tolerated Plan to get 2 step prior to dc Bilateral pulmonary emboli Left DVT Presented with progressive SOB CTA chest noting extensive bilateral pulmonary emboli Was on hep gtt--> transitioned to po warfarin Doppler showed Left DVT in peroneal veins Hgb remains stable in 7.5 to 8 range after presenting with hgb of 5.6 Hematology was consulted, recommended/stated the following: "FOBT tested okay to anticoagulate patient. Start heparin, transition to oral anticoagulation once ready. The patient will need to be on an anticoagulant for at least 6 months. She will need hypercoagulable workup on discharge. Hematology will follow-up on an outpatient basis." Considering patient is on Primidone (for history of seizure) which is a CY inducer, Eliquis or Xarelto will not be ideal Was started on warfarin INR currently supratherapeutic as high as 5.2 Continue to hold warfarin for now and monitor daily INR, currently 3.1 Continue to hold warfarin today, restart at 2.5mg in AM Continue to monitor resp status Microcytic Anemia Iron deficiency anemia Pt presenting with progressive SOB Hgb of 5.6 on admission, last CBC per [facility] in October 2020 with hgb of 13.9 MCV in the 60s, Iron lvl <10, Ferritin 4.8ng/ml, TIBC 507 Denied any bleeding FOBT per ED provider negative Anemia work up showed severe iron deficiency CT abd/pelvis with no obvious cause Got 2U of pRBCs in the ED Hb stable. 7.5 to 8 this AM Hematology consulted, recommended/stated the following: "Transfuse to maintain hemoglobin above 7. The patient will need a full workup for iron deficiency anemia including GI workup which can be performed when she is discharged. She will also need IV iron which can be given in an outpatient basis once the patient is ready for discharge more while she is in the hospital." Patient declined getting colonoscopy/EGD Follow up heme outpatient Got IV venofer x 2 doses Plan to start po iron on dc Elevated Trop Diastolic congestive heart failure with mild decompensation Trop mildly elevated at 14.2-->18-->15 Likely demand ischemia in setting of above BNP of 200 with cardiomegaly noted on chest XR, echo, r/o CHF TTE showed mod conc LVH, EF 55-60%, mild MR, Grade II diastolic dysfunction Cardiology was consulted, recommended/stated the following: -"Right heart suboptimally visualized on echocardiography, Mildly dilated on limited visualization, with normal systolic function. Overall echo findings appear to reflect longstanding hypertension, obesity with possible underlying obstructive sleep apnea/hypoxemia, aging Consider GI consultation, consideration for flaherty-endoscopy Agree with PPI Discontinue and avoid NSAIDs hereinafter Given all the above, recommend holding off on adding aspirin 81 mg/day for the atherosclerosis Discontinue fish oils given need for anticoagulation Check lipids. Discontinue red yeast rice, initiate statin therapy. Outpatient evaluation for suspected sleep apnea" Recommend to discontinue red yeast and fish oils Started aldactone 12.5mg daily Continue to monitor Complicated UTI Pt denies dysuria but notes increased urinary frequency UA suggestive of infection Urine Cx currently growing pansensitive E coli x2 strains Rocephin, transition to po equivalent on discharge Hiatal hernia Moderate to large, noted on imaging Continue ppi Seizure disorder Continue home primidone HTN Home HCTZ has been on hold Started on aldactone 12.5mg daily Diet: HH DVT prophylaxis: Warfarin, INR currently supratherapeutic Dispo: acute rehab Admission and Anticipated Discharge Date Admission Date: December 12, 2023 Subjective Pt was seen sitting in chair at bedside Resting comfortably, no acute distress States SOB has improved. Notes she has increased urinary frequency, denies dysuria Review of Systems Review of Systems: All systems reviewed & are unremarkable except as noted in Subjective Physical Exam Physical Exam: General: Alert, oriented. No acute distress Skin:bruising on skin noted Psych: Appropriate mood and affect Neuro: No gross deficits while sitting in chair HEENT: NC/AT CV: RRR Resp: Breath sounds clear bilaterally, no increased effort of breathing. Abdomen: Soft, nontender, nondistended Extremities: edema in lower extremities bilaterally. Results & Data Results & Data Vital Signs (Past 12 Hours) Vital Signs Temp Pulse Pulse Resp BP BP Pulse Ox 12/19/23 11:46 36.8 C 69 19 110/66 92 12/19/23 11:21 12/19/23 10:36 70 12/19/23 08:11 36.6 C 76 19 127/73 94 12/19/23 03:00 36.5 C 73 16 135/70 92 O2 Del Method 12/19/23 11:46 Room Air 12/19/23 11:21 Room Air 12/19/23 10:36 12/19/23 08:11 Room Air 12/19/23 03:00 Room Air (2) Pulmonary embolism Acute cor pulmonale presence: unspecified Chronicity: unspecified Pulmonary embolism type: unspecified Qualified Code(s): I26.99 - Other pulmonary embolism without acute cor pulmonale
[2023-12-20] MEDS: LIDOCAINE 5% 1 PATCH TD SCH (01:01)
[2023-12-20 06:39] LABS: Basophils # (auto) 0.02 K/uL (0.00-0.20); Basophils % (auto) 0.4 %; Eosinophils # (auto) 0.39 K/uL (0.00-0.50); Eosinophils % (auto) 6.9 %; Hematocrit (blood only) 27.9 % (37.0-47.0); Hemoglobin 8.2 g/dl (12.0-16.0); Immature Granulocytes # (auto) 0.02 K/uL (0.01-0.20); Immature Granulocytes % (auto) 0.4 %; Lymphocytes # (auto) 1.83 K/uL (1.20-3.40); Lymphocytes % (auto) 32.4 %; Mean Corpuscular Hgb Conc 29.4 g/dL (32.0-36.0); Mean Corpuscular Volume 74.8 fL (80.0-100.0); Mean Platelet Volume 9.7 fL (9.4-12.4); Monocytes # (auto) 0.66 K/uL (0.11-0.59); Monocytes % (auto) 11.7 %; Neutrophils # (auto) 2.73 K/uL (1.40-6.50); Neutrophils % (auto) 48.2 %; Platelet Count 338 K/uL (130-400); RDW Coefficient of Variation 29.6 % (11.5-14.5); RDW Standard Deviation 67.4 fL (36.4-46.3); Red Blood Count 3.73 M/uL (4.20-5.40); White Blood Count 5.65 K/ul (4.8-10.8)
[2023-12-20 07:09] LABS: BUN Creatinine Ratio 35.7 (10-20); Calcium 8.6 mg/dl (8.6-10.3); Creatinine Clr Calc Pharmacy 63.7 ml/min; Est GFR (African American) 92.2 ml/min; Est GFR (Non-African American) 79.6 ml/min; Magnesium 1.7 mg/dl (1.7-2.4); Phosphorus 3.4 mg/dl (2.5-4.9); Potassium 3.9 mmol/L (3.5-5.1)
[2023-12-20 07:14] LABS: INR 2.3 (0.9-1.1); Prothrombin Time 23.5 Seconds (9.0-12.0)
[2023-12-20 07:19] LABS: Anisocytosis Present; Hypochromasia Present; Ovalocytes 1+; Polychromasia 1+; Tear Drop Cells 1+
--- NOTE | 2023-12-20 11:48 | Hospitalist Progress Note ---
Date of Service December 20, 2023 Assessment & Plan (1) Weakness: (2) Pulmonary embolism: (3) Symptomatic anemia: (4) Acute hypoxic respiratory failure: Plan 83 year old womn with PMHx significant for HTN, seizure disorder, HLD who presents with progressive SOB over the last few weeks. Acute hypoxic respiratory Failure Pt with oxygen saturation in the 80s at times Due to bilateral PE and anemia Wean oxygen as tolerated Pt to d/c to acute rehab, no 2 step needed Bilateral pulmonary emboli Left DVT Presented with progressive SOB CTA chest noting extensive bilateral pulmonary emboli Was on hep gtt--> transitioned to po warfarin Doppler showed Left DVT in peroneal veins Hgb remains stable in 7.5 to 8 range after presenting with hgb of 5.6 Hematology was consulted, recommended/stated the following: "FOBT tested okay to anticoagulate patient. Start heparin, transition to oral anticoagulation once ready. The patient will need to be on an anticoagulant for at least 6 months. She will need hypercoagulable workup on discharge. Hematology will follow-up on an outpatient basis." Considering patient is on Primidone (for history of seizure) which is a CY inducer, Eliquis or Xarelto will not be ideal Was started on warfarin INR currently supratherapeutic as high as 5.2, held warfarin Warfarin currently at goal of INR 2-3, warfarin re-started at lower dose of 2mg daily Continue to monitor resp status Continue to monitor INR Microcytic Anemia Iron deficiency anemia Pt presenting with progressive SOB Hgb of 5.6 on admission, last CBC per [facility] in October 2020 with hgb of 13.9 MCV in the 60s, Iron lvl <10, Ferritin 4.8ng/ml, TIBC 507 Denied any bleeding FOBT per ED provider negative Anemia work up showed severe iron deficiency CT abd/pelvis with no obvious cause Got 2U of pRBCs in the ED Hb stable. 7.5 to 8 this AM Hematology consulted, recommended/stated the following: "Transfuse to maintain hemoglobin above 7. The patient will need a full workup for iron deficiency anemia including GI workup which can be performed when she is discharged. She will also need IV iron which can be given in an outpatient basis once the patient is ready for discharge more while she is in the hospital." Patient declined getting colonoscopy/EGD Follow up heme outpatient Got IV venofer x 2 doses Plan to start po iron on dc Elevated Trop Diastolic congestive heart failure with mild decompensation Trop mildly elevated at 14.2-->18-->15 Likely demand ischemia in setting of above BNP of 200 with cardiomegaly noted on chest XR, echo, r/o CHF TTE showed mod conc LVH, EF 55-60%, mild MR, Grade II diastolic dysfunction Cardiology was consulted, recommended/stated the following: -"Right heart suboptimally visualized on echocardiography, Mildly dilated on limited visualization, with normal systolic function. Overall echo findings appear to reflect longstanding hypertension, obesity with possible underlying obstructive sleep apnea/hypoxemia, aging Consider GI consultation, consideration for flaherty-endoscopy Agree with PPI Discontinue and avoid NSAIDs hereinafter Given all the above, recommend holding off on adding aspirin 81 mg/day for the atherosclerosis Discontinue fish oils given need for anticoagulation Check lipids. Discontinue red yeast rice, initiate statin therapy. Outpatient evaluation for suspected sleep apnea" Recommend to discontinue red yeast and fish oils Started aldactone 12.5mg daily Continue to monitor Complicated UTI Pt denies dysuria but notes increased urinary frequency, also weakness UA suggestive of infection Urine Cx currently growing pansensitive E coli x2 strains Rocephin, transition to po equivalent on discharge Hiatal hernia Moderate to large, noted on imaging Continue ppi Seizure disorder Continue home primidone HTN Home HCTZ has been on hold Started on aldactone 12.5mg daily Diet: HH DVT prophylaxis: Warfarin, INR currently supratherapeutic Dispo: acute rehab Admission and Anticipated Discharge Date Admission Date: December 12, 2023 Subjective Pt was seen sitting in bed Resting comfortably, no acute distress States SOB has improved. States that she has been having BMs. States that the bed is very uncomfortable, had to get tylenol and a lidocaine patch for back and knee pain overnight. Anxious for discharge, hoping her bed will be held at rehab. Spoke to pt's son in the hallway. Would like discharge tomorrow. Review of Systems Review of Systems: All systems reviewed & are unremarkable except as noted in Subjective Physical Exam Physical Exam: General: Alert, oriented. No acute distress Skin:bruising on skin noted Psych: Appropriate mood and affect Neuro: No gross deficits while sitting HEENT: NC/AT CV: RRR Resp: Breath sounds clear bilaterally, no increased effort of breathing. Abdomen: Soft, nontender, nondistended Extremities: edema in lower extremities bilaterally. Results & Data Results & Data Vital Signs (Past 12 Hours) Vital Signs Temp Pulse Resp BP BP Pulse Ox O2 Del Method 12/20/23 11:23 36.6 C 70 19 129/81 93 Room Air 12/20/23 08:00 Room Air 12/20/23 07:52 37.2 C 70 18 145/75 H 94 Room Air 12/20/23 03:00 36.8 C 75 19 130/71 95 Room Air (2) Pulmonary embolism Acute cor pulmonale presence: unspecified Chronicity: unspecified Pulmonary embolism type: unspecified Qualified Code(s): I26.99 - Other pulmonary embolism without acute cor pulmonale
[2023-12-20] MEDS: WARFARIN SOD 2 MG TAB PO SCH (17:08)
[2023-12-21 05:40] LABS: BUN Creatinine Ratio 32.8 (10-20); Calcium 8.8 mg/dl (8.6-10.3); Creatinine Clr Calc Pharmacy 66.5 ml/min; Est GFR (African American) 93.6 ml/min; Est GFR (Non-African American) 80.7 ml/min; Magnesium 1.7 mg/dl (1.7-2.4); Phosphorus 3.5 mg/dl (2.5-4.9); Potassium 3.9 mmol/L (3.5-5.1)
[2023-12-21 05:48] LABS: INR 2.1 (0.9-1.1); Prothrombin Time 21.7 Seconds (9.0-12.0)
[2023-12-21 06:12] LABS: Hematocrit (blood only) 28.4 % (37.0-47.0); Hemoglobin 8.4 g/dl (12.0-16.0); Mean Corpuscular Hemoglobin 22.5 pg (25.0-34.0); Mean Corpuscular Hgb Conc 29.6 g/dL (32.0-36.0); Mean Corpuscular Volume 76.1 fL (80.0-100.0); Mean Platelet Volume 10.3 fL (9.4-12.4); Platelet Count 228 K/uL (130-400); RDW Coefficient of Variation 30.3 % (11.5-14.5); RDW Standard Deviation 74.5 fL (36.4-46.3); Red Blood Count 3.73 M/uL (4.20-5.40); White Blood Count 5.84 K/ul (4.8-10.8)
[2023-12-21 06:13] LABS: Anisocytosis Present; Basophils # (auto) 0.03 K/uL (0.00-0.20); Basophils % (auto) 0.5 %; Eosinophils # (auto) 0.42 K/uL (0.00-0.50); Eosinophils % (auto) 7.2 %; Hypochromasia Present; Immature Granulocytes # (auto) 0.02 K/uL (0.01-0.20); Immature Granulocytes % (auto) 0.3 %; Lymphocytes # (auto) 1.78 K/uL (1.20-3.40); Lymphocytes % (auto) 30.5 %; Monocytes # (auto) 0.72 K/uL (0.11-0.59); Monocytes % (auto) 12.3 %; Neutrophils # (auto) 2.87 K/uL (1.40-6.50); Neutrophils % (auto) 49.2 %; Polychromasia 1+; Tear Drop Cells 1+
--- NOTE | 2023-12-21 11:07 | Discharge Summary ---
Discharge Summary Date of Service December 21, 2023 Principal Dx & Hospital Course #1 = Principal Diagnosis (1) Weakness: (2) Pulmonary embolism: (3) Symptomatic anemia: (4) Acute hypoxic respiratory failure: Plan Pt is an 83yoF with PMHx significant for HTN, seizure disorder, HLD who presents with progressive SOB over the last few weeks. Acute hypoxic respiratory Failure Pt with oxygen saturation in the 80s at times Likely in setting of bilateral PE and anemia (see below) Weaned oxygen as tolerated Pt on RA at time of discharge, stable. Discharged to rehab, no 2 step needed. Bilateral pulmonary emboli Left DVT Presented with progressive SOB CTA chest noting extensive bilateral pulmonary emboli Was on hep gtt--> transitioned to po warfarin Doppler showed left DVT in peroneal veins Hgb remains stable in 7.5 to 8 range after presenting with hgb of 5.6. hgb of 8.4 on discharge. Hematology was consulted, recommended/stated the following: "FOBT tested okay to anticoagulate patient. Start heparin, transition to oral anticoagulation once ready. The patient will need to be on an anticoagulant for at least 6 months. She will need hypercoagulable workup on discharge. Hematology will follow-up on an outpatient basis." Considering patient is on Primidone (for history of seizure) which is a CY inducer, Eliquis or Xarelto was not ideal Was started on warfarin and INR monitored. INR was initially supratherapeutic as high as 5.2 and warfarin was held. INR came down to goal at 2.3 and warfarin was re-started at 2.0mg. INR 2.1 on day of discharge, and pt discharged with warfarin 2.5mg dose. Closely follow INR Closely monitor H/H Please ensure coumadin clinic follow up Please ensure followup with Hematology Microcytic Anemia Iron deficiency anemia Pt presenting with progressive SOB Hgb of 5.6 on admission, last CBC per [facility] in October 2020 with hgb of 13.9 MCV in the 60s, Iron lvl <10, Ferritin 4.8ng/ml, TIBC 507 Denied any bleeding FOBT per ED provider negative Anemia work up showed severe iron deficiency CT abd/pelvis with no obvious cause Got 2U of pRBCs in the ED Hb stable at 7.5 to 8 range. Hgb of 8.4 on discharge. Hematology consulted, recommended/stated the following: "Transfuse to maintain hemoglobin above 7. The patient will need a full workup for iron deficiency anemia including GI workup which can be performed when she is discharged. She will also need IV iron which can be given in an outpatient basis once the patient is ready for discharge more while she is in the hospital." Patient declined getting colonoscopy/EGD. Follow up with hematology outpatient Got IV venofer x 2 doses while hospitalized Discharged with po iron supplements. Pt concerned about constipation, encouraged to take it every other day or every 2 days to see if it will help. Will likely need regular iron infusions, PCP and Hematology follow up. Elevated Trop Diastolic congestive heart failure with mild decompensation Trop mildly elevated at 14.2-->18-->15 Likely demand ischemia in setting of above BNP of 200 with cardiomegaly noted on chest XR, echo, r/o CHF TTE showed mod conc LVH, EF 55-60%, mild MR, Grade II diastolic dysfunction Cardiology was consulted, recommended/stated the following: -"Right heart suboptimally visualized on echocardiography, Mildly dilated on limited visualization, with normal systolic function. Overall echo findings appear to reflect longstanding hypertension, obesity with possible underlying obstructive sleep apnea/hypoxemia, aging Consider GI consultation, consideration for flaherty-endoscopy Agree with PPI Discontinue and avoid NSAIDs hereinafter Given all the above, recommend holding off on adding aspirin 81 mg/day for the atherosclerosis Discontinue fish oils given need for anticoagulation Check lipids. Discontinue red yeast rice, initiate statin therapy. Outpatient evaluation for suspected sleep apnea" Recommend to discontinue red yeast and fish oils as above Started aldactone 12.5mg daily in place of HCTZ per Cardiology recs. Stop home potassium supplements while on spironolactone. Future considerations include adding low-dose carvedilol for blood pressure, cardioprotective effects. Close cardiology followup after discharge. Complicated UTI Pt denies dysuria but notes increased urinary frequency, also weakness UA suggestive of infection Urine Cx currently growing pansensitive E coli x2 strains IV Rocephin x3 days, transitioned to po cefdinir for 7 more days on discharge Hiatal hernia Moderate to large, noted on imaging Continue ppi after discharge Seizure disorder Continue home primidone HTN Home HCTZ has been discontinued Started on aldactone 12.5mg daily, stop home KCl supplements Notes For Next Care Provider Per cardiology, evaluate for sleep apnea outpt Closely follow INR Closely monitor H/H Please ensure coumadin clinic follow up Please ensure followup with Hematology please ensure follow up with cardiology -consider re-starting statin Medication Changes From Visit iron supplement- q other day or every 2 days if constipated warfarin 2.5mg daily pantoprazole 40mg daily Per cardiology: -stop fish oil, red yeast extract -stop HCTZ -started on spironolactone 12.5mg daily, STOP home KCl supplements while on spironolactone Admission HPI Per Admitting Provider Pt is an 83yoF with PMHx significant for HTN, seizure disorder, HLD who presents with progressive SOB over the last few weeks. She states that she has been having SOB with progression over the last few weeks. Mostly with ambulation. States she has never smoked and does not use oxygen at home. Denies epistaxis, hemoptysis, hematemesis or hematochezia/melena. She does note that many weeks ago she might have had black stools but believes it was related to what she ate. States she gets very tired and has to rest or sit when she is walking. Chart review shows she saw her pcp in October and had had a recent fall at that time. Denies chest pain but states she feels like she has reflux. Denies palpitations. Denies orthopnea. States her legs are always swollen. Pt was consented for blood in the ED and transfused 2U. Two sons were present at bedside including son Rayray Banuelos who is an RN here in the hospital. Admission Exam Per Admitting Provider General: Alert, oriented. No acute distress Skin: No noted rashes or bruises Psych: Appropriate mood and affect Neuro: No gross deficits HEENT: NC/AT, NC in nares Chest: Nontender to palpation. CV: RRR Resp: Breath sounds decreased bilaterally, no increased effort of breathing. Abdomen: Soft, nontender, nondistended Extremities: edema in lower extremities bilaterally. Discharge Exam General: Alert, oriented. No acute distress Skin:bruising on skin noted Psych: Appropriate mood and affect Neuro: No gross deficits while sitting HEENT: NC/AT CV: RRR Resp: Breath sounds clear bilaterally, no increased effort of breathing. Abdomen: Soft, nontender, nondistended Extremities: edema in lower extremities bilaterally. Updated Medication List Medication Instructions Recorded Confirmed Type glucosamine-chondroitin 250 mg-200 1 tab PO DAILY 10/10/18 12/12/23 History mg tablet (Osteo Bi-Flex) primidone 250 mg tablet 250 mg PO BID 10/10/18 12/12/23 History loratadine 10 mg tablet (Claritin) 10 mg PO DAILY 12/12/23 12/12/23 History cefdinir 300 mg capsule 300 mg PO BID #14 caps 12/21/23 Rx ferrous sulfate 325 mg (65 mg 325 mg PO Q OTHER DAY #30 tabs 12/21/23 Rx iron) tablet pantoprazole 40 mg tablet,delayed 40 mg PO QAM #30 tabs 12/21/23 Rx release spironolactone 25 mg tablet 12.5 mg (1/2 x 25 mg) PO DAILY #30 12/21/23 Rx tabs warfarin 2.5 mg tablet (Jantoven) 2.5 mg PO DAILY@1600 #30 tabs 12/21/23 Rx Hospital Stay Data Consultations 12/12/23 14:54 ED Decision to Admit Stat 12/12/23 17:18 Consult Hematology Stat 12/13/23 13:32 Consult Cardiology Routine Diagnostic Imagining Performed 12/12/23 15:59 CT Abd and Pelvis [CT abd pelvis IV con only] Urgent CT angio chest PE protocol Urgent 12/13/23 18:54 US venous doppler LE BI Routine Chest X-Ray 12/12/23 13:15 XR chest 2V PA/lateral HISTORY: Chest pain, nonspecific COMPARISON: None. FINDINGS: No pneumothorax. No pleural effusions. The cortex silhouette is mildly enlarged. Retrocardiac density favors a moderate hiatus hernia. There are calcifications within the aortic knob. No focal lung consolidations to suggest a pneumonia. No evidence for pulmonary edema. No acute fractures. IMPRESSION: 1. Mild cardiomegaly. 2. Retrocardiac density favors a moderate hiatus hernia. 3. No focal lung consolidations to suggest a pneumonia. ACT 112: Negative or not required by law. Electronically signed by: Yuri Virgen M.D. 12/12/2023 3:14 PM Abdomen/Pelvis CT 12/12/23 15:[address] WITH IV CONTRAST CT DOSE: HISTORY: anemia, r/o bleed TECHNIQUE: Multiaxial CT images of the abdomen and pelvis were performed following the use of intravenous contrast. A dose lowering technique was utilized adhering to the principles of ALARA. COMPARISON STUDY: None. FINDINGS: The lung bases will be reported on the same day chest CTA. No pneumoperitoneum. No pneumatosis. No acute fractures. Moderate hiatus hernia is noted. Right lower lobe segmental pulmonary emboli are again noted. A few hepatic and bilateral renal cysts are noted. The spleen, adrenal glands, pancreas, gallbladder are unremarkable. The main portal vein is patent. No hydronephrosis. No retroperitoneal hematoma or lymphadenopathy. Calcified plaque within the normal caliber abdominal aorta. No pelvic lymphadenopathy or pelvic free fluid. Normal bladder. Prior hysterectomy. Mild pelvic floor collapse. No bowel wall thickening or obstruction. Prior appendectomy. Small bilateral ovarian cysts are noted. IMPRESSION: 1. The right lower lobe pulmonary emboli are better appreciated on the same day chest CTA. 2. No evidence for a retroperitoneal hematoma. 3. No bowel wall thickening or obstruction. 4. Moderate hiatus hernia. 5. Additional findings as described above. ACT 112: Negative or not required by law. Electronically signed by: Yuri Virgen M.D. 12/12/2023 5:17 PM Chest CTA 12/12/23 15:59 CT ANGIOGRAM OF THE CHEST CLINICAL HISTORY: Atypical chest pain. Dyspnea. Fatigue COMPARISON STUDY: Chest x-ray dated 12/12/2023. TECHNIQUE: Following the IV administration of 121 cc of Optiray 320, CT angiogram of the chest was performed from the upper abdomen to the thoracic inlet utilizing the pulmonary embolus protocol. Images are reviewed in the axial, sagittal, and coronal planes. 3-D MIPS images are created and assessed. IV contrast was administered without complication. A dose lowering technique was utilized adhering to the principles of ALARA. CT DOSE: 2269.61 mGy.cm FINDINGS: Thyroid: Imaged portions of the thyroid gland are normal in size and attenu ation. Thoracic aorta: There is atherosclerotic calcification of the thoracic aorta, which is normal in caliber and demonstrates standard 3-vessel arch anatomy. No dissection is seen. Pulmonary vasculature: The pulmonary trunk is normal in caliber. There is pulmonary embolus within the right upper, right middle, and left lower lobe pulmonary arteries which extend into segmental and subsegmental branches. There are also segmental and subsegmental pulmonary embolus in branches of the right lower and left upper lobe pulmonary arteries. Heart: The heart is enlarged and without pericardial effusion. The coronary arteries are densely calcified. Lungs and pleural spaces: Evaluation of the lung parenchyma is degraded by motion artifact. There is no airspace consolidation or pleural effusion. Subpleural reticulation is seen throughout both lungs. There is bibasilar scarring/atelectasis. The trachea and central airways are clear. Mediastinum: There is no mediastinal lymphadenopathy. Faith: Clear. Axillae: There is no axillary lymphadenopathy. Upper abdomen: There is a moderate to large hiatal hernia. Scattered hepatic cysts measure up to 2.4 cm. An exophytic left renal cyst measures up to 1.6 cm. Skeletal structures: The skeletal structures are osteopenic. Degenerative change and hyperkyphosis is seen in the spine. No lytic or blastic bony lesions are seen. Arthritic change is seen in the shoulders. IMPRESSION: 1. Fairly extensive bilateral pulmonary emboli as above. 2. There is no airspace consolidation or pleural effusion. 3. Moderate to large hiatal hernia. 4. Cardiomegaly. 5. Additional findings as above. ACT 112: Negative or not required by law. Electronically signed by: Johnathan Gresham M.D. 12/12/2023 5:04 PM Venous Doppler Study 12/13/23 18:54 ULTRASOUND BILATERAL LOWER EXTREMITY VENOUS CLINICAL HISTORY: Pulmonary embolus COMPARISON STUDY: No priors TECHNIQUE: Real-time, grayscale, and color Doppler sonography of the deep veins of the right and left lower extremity was performed from the inguinal crease to the calf. Compression and augmentation were utilized. FINDINGS: Right lower extremity: There is no sonographic evidence of deep venous thrombosis in the right lower extremity. The common femoral, superficial femoral, and popliteal veins are patent and normally compressible. The greater saphenous vein and the profunda femoris vein at the junction with the common femoral vein are clear. The visualized calf veins are patent. Left lower extremity: There is nearly occlusive to occlusive deep venous thrombosis in the calf within the peroneal veins. The remaining calf vessels are patent. The common femoral, superficial femoral, and popliteal veins are patent and normally compressible. The greater saphenous vein and the profunda femoris vein at the junction with the common femoral vein are clear. IMPRESSION: 1. There is deep venous thrombosis in the left calf within the peroneal veins. 2. The remaining deep veins of the left lower extremity are clear. 3. There is no sonographic evidence of deep venous thrombosis in the right lower extremity. ACT 112: Negative or not required by law. Electronically signed by: Johnathan Gresham M.D. 12/13/2023 9:10 AM Discharge Instructions Given to Patient (Per Discharging Provider) Ngoc, You were admitted with shortness of breath that resolved and weakness that is getting better. We are discharging you to rehab/SNF to help with getting your strength back. We noted that you had blood clots in both your left leg and in your lungs. We are discharging you with the medication warfarin 2.5mg to help keep your blood thin to help with that. Your goal INR should be between 2 and 3. You will need to follow up with the Microbiology Quality Control Technician after discharge to find out why you are making blood clots. You will also likely need follow up with the coumadin clinic to continue to monitor your INR and adjust your warfarin dose as needed but your primary care provider can help with setting that all up for you. We also noted that you were very anemic. We treated that with IV iron infusions and we are discharging you with oral iron pills. With the concern for constipation you can space out how you take the pill to every other day or every 2 days to help with not binding you up. It is likely that you will need continued IV iron infusions. Your primary care provider and Hematology can help with setting that up for you. You declined further evaluation by a aeronautical project engineer to help determine a cause of your blood clots or bleeding through endoscopy/colonoscopy procedures. Please re-consider doing those in the future. You also have a hiatal hernia. Continue with pantoprazole 40mg daily. Please stop using medications such as ibuporfen/Motrin/naproxen etc (NSAIDS) at home. You also had a urinary tract infection while here. With the weakness and your noted increased urinary frequency, we decided to treat you for that even though it does not burn when you pee. Please continue with the oral antibiotic for another 7 days. You were also seen by cardiology and you now have the diagnosis of diastolic congestive heart failure. -They stopped your home hydrochlorothiazide and switched you to spironolactone 12.5mg. Please take it as prescribed. -Since spironolactone can make your potassium level high, they recommend that you STOP the potassium supplements you take at home while on this. -They want you to discontinue the red yeast extract and start taking a statin. We recommend discussing this further with your primary care provider and if you are agreeable to starting or another trial of a statin, they can prescribe it for you. -They recommend that you discontinue fish oils given the need for warfarin anticoagulation. -They recommend no aspirin at this time due to your anemia. -They recommend outpatient evaluation for suspected sleep apnea. Please keep close follow up with your primary care provider, hematology and Cardiology after discharge. Please do not hesitate to come back to the emergency room if your symptoms worsen or return. It was a pleasure taking care of you while you were here. Total Time Total Time Spent Total Time Spent (In Minutes): 75
[2023-12-21 11:48] VITALS: RESP 18; TEMP 98.6; O2SAT 94
[2023-12-21 15:28] VITALS: BP 145/75; PULSE 82
[2023-12-21] MEDS ORDERED: WARFARIN SOD 2.5 MG TAB PO SCH (16:00)
== END 2023-12-21 15:15 | DRG 175 ==
LOC: ED 13:01 → EDINP 15:50 → SUATTDRO 15:50 → EDINP 17:26 → 4W 12-13 12:41
DX: G40.909 Epilepsy, unspecified, not intractable, without status epilepticus; J96.01 Acute respiratory failure with hypoxia; I82.452 Acute embolism and thrombosis of left peroneal vein; I11.0 Hypertensive heart disease with heart failure; Z88.5 Allergy status to narcotic agent; D50.9 Iron deficiency anemia, unspecified; I50.33 Acute on chronic diastolic (congestive) heart failure; K44.9 Diaphragmatic hernia without obstruction or gangrene; N39.0 Urinary tract infection, site not specified; I26.99 Other pulmonary embolism without acute cor pulmonale; I24.89 Other forms of acute ischemic heart disease